=== PATIENT | male | born 1975 | race Caucasian/White ===

== ENCOUNTER 2018-09-09 16:49 | Emergency (ER) | payer OTHER ==
[2018-09-09 16:59] VITALS: BP 150/89; PULSE 88; RESP 16; TEMP 98.2
--- NOTE | 2018-09-09 17:25 | XR ---
PROCEDURE: XR foot complete RT - 3V DATE AND TIME: 09/09/2018 5:19 PM CLINICAL INDICATION: PHH; Pain TECHNIQUE: Department protocol COMPARISON: None FINDINGS: There is no fracture or malalignment. The soft tissues are unremarkable. IMPRESSION: NO ACUTE PROCESS.
[2018-09-09] MEDS ORDERED: LIDOCAINE 1% INJ 10MG/ML (20 ML MDV) SQ STA (17:28)
[2018-09-09] MEDS ORDERED: ACETAMINOPHEN TAB 325 MG TAB PO STA (17:28)
--- NOTE | 2018-09-09 18:34 | ED ---
General Adult HPI - General Chief complaint: Wound/Laceration Stated complaint: RT TOE INJURY Source: patient, RN notes reviewed, old records reviewed Mode of arrival: ambulatory Limitations: no limitations - History of Present Illness Initial comments: 42-year-old male patient with no pertinent past medical history presents to ED with acute injury to right great toe. Patient states that he was loading a small speaker out of a car when it fell onto his right great toe. Patient states that he experienced pain and some bleeding on his right great toe. Patient is ambulatory, has pain with his right foot while walking. Patient denies all other complaints. Patient denies use of blood thinners, familial cognition disorder. Patient denies chest pain, shortness of breath, abdominal pain, nausea vomiting diarrhea, any other symptoms. Systemic: Pt denies fatigue, myalgia, fever/chills, rash. Pt denies weakness, night sweats, weight loss. Neuro: Pt denies headache, visual disturbances, syncope or pre-syncope. HEENT: Pt denies ocular discharge or irritation, otalgia, rhinorrhea, pharyngitis or notable lymphadenopathy. Cardiopulmonary: Pt denies chest pain, SOB, heart palpitations, dyspnea on exertion. Abdominal/GI: Pt denies abdominal pain, n/v/d. : Pt denies dysuria, burning w/ urination, frequency/urgency. Denies new onset urinary or bowel incontinence. MSK: Pt denies myalgia, loss of strength or function in extremities. Neuro: Pt denies new onset weakness, paresthesias. - Related Data Allergies Allergy/AdvReac Type Severity Reaction Status Date / Time No Known Allergies Allergy Verified 09/09/18 16:59 Review of Systems ROS Statement: Those systems with pertinent positive or pertinent negative responses have been documented in the HPI. ROS Other: All systems not noted in ROS Statement are negative. Past Medical History Past Medical History: No Reported History History of Any Multi-Drug Resistant Organisms: None Reported Additional Past Surgical History / Comment(s): carpal tunnel. ACL left knee. Past Psychological History: No Psychological Hx Reported Smoking Status: Current every day smoker Past Alcohol Use History: Daily Past Drug Use History: None Reported General Exam - General Exam Comments Initial Comments: Constitutional: NAD, AOX3, Pt has pleasant affect. HEENT: NC/AT, trachea midline, neck supple, no lymphadenopathy. Posterior pharynx non erythematous, without exudates. External ears appear normal, without discharge. Mucous membranes moist. Eyes PERRLA, EOM intact. There is no scleral icterus. No pallor noted. Cardiopulmonary: RRR, no murmurs, rubs or gallops, no JVD noted. Lungs CTAB in anterior and posterior rojas. No peripheral edema. Abdominal exam: Abdomen soft and non-distended. Abdomen non-tender to palpation in all 4 quadrants. Bowel sounds active in LLQ. No hepatosplenomegaly. No ecchymosis Neuro: CN II-XII grossly intact. No nuchal rigidity. MSK: Distal lateral right great lateral toe mildly tender to palpation. Patient able to wiggle toes. Approximately 3 cm laceration on lateral for great toe. Spares the nailbed. Sensation intact. Capillary refill <2 seconds. No tenderness to mid/fore/hindfoot, no ankle tenderness. Pt neurovascularly intact after suture placement. No posterior calf tenderness bilaterally, homans sign negative bilaterally. Posterior tibialis, dorsalis pedis and radial pulse +2 bilaterally. Sensation intact in upper and lower extremities. Full active ROM in upper and lower extremities, 5/5 strength. Limitations: no limitations Course Vital Signs 09/09/18 16:56 Temperature 98.2 F Pulse Rate 88 Respiratory 16 Rate Blood Pressure 150/89 O2 Sat by Pulse 98 Oximetry Procedures - Laceration Laceration #1 Consent Obtained: verbal consent Time Out Performed: Yes Indication: laceration Site: other (great toe) Description: linear Depth: simple, single layer Anesthetic Used: lidocaine 1% Anesthesia Technique: local infiltration Pre-repair: wound explored, irrigated extensively Type of Sutures: nylon Size of Sutures: 5-0 Number of Sutures: 6 Technique: simple, interrupted Patient Tolerated Procedure: well, no complications Medical Decision Making - Medical Decision Making 42-year-old male patient presents to ED after sustaining acute injury to right great toe after speaker fell on foot. Patient able to wiggle toes, able to ambulate, neurovascularly intact. Plain films of right great toe are negative. Laceration was repaired with 6 simple interrupted sutures. Patient tolerated procedure well. Patient to return to ED in 10 days to have sutures removed. Patient to follow primary care physician in one to 2 days. Patient educated on signs and symptoms of infection. Patient to return to ED if new signs or symptoms develop including worsening pain, fever chills, nausea vomiting diarrhea, erythema, discharge, any other new symptoms. Patient discharged in postop walking boot. Case discussed with Dr. Esparza. Disposition Clinical Impression: Laceration, Contusion of great toe of right foot Disposition: HOME SELF-CARE Condition: Good Instructions: Care For Your Stitches (ED), Foot Contusion (ED) Additional Instructions: Patient to adhere to previously discussed treatment plan and will take medication(s) as directed. Patient to follow up with PCP in 1-2 days. Patient to return to ED if symptoms do not improve. Is patient prescribed a controlled substance at d/c from ED?: No Referrals: Manuel Gallagher MD [Primary Care Provider] - 1-2 days Time of Disposition: 18:33
== END 2018-09-09 18:42 | disposition home or self-care (01) ==
LOC: EC 16:49
DX: S91.111A Laceration without foreign body of right great toe without damage to nail, initial encounter (principal); F17.200 Nicotine dependence, unspecified, uncomplicated; W20.8XXA Other cause of strike by thrown, projected or falling object, initial encounter; Y93.89 Activity, other specified; Y92.89 Other specified places as the place of occurrence of the external cause
CPT/HCPCS: 73630; 99283; 12002; J2001; 12001

== ENCOUNTER 2020-05-31 05:50 | Emergency (ER) | payer OTHER ==
[2020-05-31] MEDS ORDERED: SODIUM CHLORIDE 0.9% 1,000 ML IV ONE (06:28)
[2020-05-31] MEDS ORDERED: MORPHINE SULFATE 4 MG/ML SYRINGE IVP STA (06:28)
[2020-05-31] MEDS ORDERED: SODIUM CHLORIDE 0.9% 1,000 ML IV SCH (06:30)
--- NOTE | 2020-05-31 06:42 | ED ---
Male Urogenital HPI - General Chief complaint: Urogenital Stated complaint: groin pain Time Seen by Provider: 05/31/20 06:11 Source: patient Mode of arrival: ambulatory Limitations: no limitations - History of Present Illness Initial comments: 44yo male presenting today for cc of of left inguinal pain. Patient states he has left inguinal pain extends into his testicle. Patient states that increases with coughing or lifting. Patient states that this has been ongoing since Saturday he states he does have known history of a hernia. Patient states he went to an outpatient clinic who states they're concerned of a hernia. Patient states his symptoms persist he states they come and go. He denies dysuria urgency frequency. He states he does have some discomfort at times radiating into the left testicle. Patient denies any testicular color changes or swelling. Patient denies any fevers he has no additional complaints upon arrival patient appears well nontoxic - Related Data Home Medications Medication Instructions Recorded Confirmed Dextroamphetamine/Amphetamine 30 mg PO DAILY PRN 05/31/20 05/31/20 [Adderall Xr] [place](Unknown Dose) 1 tab PO DAILY PRN 05/31/20 05/31/20 Omeprazole Magnesium [PriLOSEC OTC] 20 mg PO DAILY PRN 05/31/20 05/31/20 Allergies Allergy/AdvReac Type Severity Reaction Status Date / Time No Known Allergies Allergy Verified 05/31/20 08:05 Review of Systems ROS Statement: Those systems with pertinent positive or pertinent negative responses have been documented in the HPI. ROS Other: All systems not noted in ROS Statement are negative. Past Medical History Past Medical History: No Reported History History of Any Multi-Drug Resistant Organisms: None Reported Additional Past Surgical History / Comment(s): carpal tunnel. ACL left knee. Past Psychological History: Depression Smoking Status: Current every day smoker Past Alcohol Use History: Abuse, Daily Past Drug Use History: Marijuana General Exam - General Exam Comments Initial Comments: General: The patient is awake and alert, in no distress, and does not appear acutely ill. Eye: Pupils are equal, round and reactive to light, extra-ocular movements are intact. No nystagmus. There is normal conjunctiva bilaterally. No signs of icterus. Ears, nose, mouth and throat: There are moist mucous membranes and no oral lesions. Neck: The neck is supple, there is no tenderness or JVD. Cardiovascular: There is a regular rate and rhythm. No murmur, rub or gallop is appreciated. Respiratory: Lungs are clear to auscultation, respirations are non-labored, breath sounds are equal. No wheezes, stridor, rales, or rhonchi. Gastrointestinal: Soft, non-distended, non-tender abdomen without masses or organomegaly noted. There is no rebound or guarding present. :with turning cough I did feel a reducible inguinal hernia on the left side is difficult to decipher if this was direct or indirect, I felt it mostly touched the tip of my finger most indicative of direct. Patient has no severe pain with exam. Verticle lie of sctorum, cremesteric reflex intact with no redness of scrotum. Musculoskeletal: Normal ROM, no tenderness. Strength 5/5. Sensation intact. P ulses equal bilaterally 2+. Neurological: A&O x 3. CN II-XII intact grossly, There are no obvious motor or sensory deficits. Coordination appears grossly intact. Speech is normal. Skin: Skin is warm and dry and no rashes or lesions are noted. Psychiatric: Cooperative, appropriate mood & affect, normal judgment. Limitations: no limitations Course Vital Signs 05/31/20 05/31/20 06:04 10:03 Temperature 97.9 F 98 F Pulse Rate 81 79 Respiratory 16 18 Rate Blood Pressure 137/90 120/91 O2 Sat by Pulse 99 97 Oximetry Medical Decision Making - Medical Decision Making 18.[address] no hernia, personally reviewed with attending Dr. mills who is agreeable to radiology read. Lactic acid WNL. After one dose of IV medications pt symptoms resolved. Hernia palpated but was reducible on exam. Patient US of scrotum no torsion. Patient UA unremarkable. Discussed importance of return parameters for pain as there is risk with hernia for strangulation/incarceration. Patient is to f/u with general surgery. Patient verbalized understanding and is agreeable to care plan and discharge. - Lab Data Result diagrams: 05/31/20 06:46 05/31/20 06:46 Lab Results 05/31/20 05/31/20 05/31/20 Range/Units 06:46 06:46 06:46 WBC 18.4 H (3.8-10.6) k/uL RBC 4.80 (4.30-5.90) m/uL Hgb 14.6 (13.0-17.5) gm/dL Hct 44.4 (39.0-53.0) % MCV 92.4 (80.0-100.0) fL MCH 30.3 (25.0-35.0) pg MCHC 32.8 (31.0-37.0) g/dL RDW 13.5 (11.5-15.5) % Plt Count 453 H (150-450) k/uL Neutrophils % 77 % Lymphocytes % 16 % Monocytes % 5 % Eosinophils % 2 % Basophils % 1 % Neutrophils # 14.1 H (1.3-7.7) k/uL Lymphocytes # 2.9 (1.0-4.8) k/uL Monocytes # 0.8 (0-1.0) k/uL Eosinophils # 0.3 (0-0.7) k/uL Basophils # 0.1 (0-0.2) k/uL Sodium 141 (137-145) mmol/L Potassium 4.1 (3.5-5.1) mmol/L Chloride 104 (98-107) mmol/L Carbon Dioxide 27 (22-30) mmol/L Anion Gap 10 mmol/L BUN 6 L (9-20) mg/dL Creatinine 0.69 (0.66-1.25) mg/dL Est GFR (CKD-EPI)AfAm >90 (>60 ml/min/1.73 sqM) Est GFR (CKD-EPI)NonAf >90 (>60 ml/min/1.73 sqM) Glucose 108 H (74-99) mg/dL Plasma Lactic Acid [place] 1.2 (0.7-2.0) mmol/L Calcium 9.7 (8.4-10.2) mg/dL Total Bilirubin 0.5 (0.2-1.3) mg/dL AST 29 (17-59) U/L ALT 37 (4-49) U/L Alkaline Phosphatase 89 (38-126) U/L Total Protein 7.8 (6.3-8.2) g/dL Albumin 4.8 (3.5-5.0) g/dL Urine Color Urine Appearance (Clear) Urine pH (5.0-8.0) Ur Specific [place] (1.001-1.035) Urine Protein (Negative) Urine Glucose (UA) (Negative) Urine Ketones (Negative) Urine Blood (Negative) Urine Nitrite (Negative) Urine Bilirubin (Negative) Urine Urobilinogen (<2.0) mg/dL Ur Leukocyte Esterase (Negative) 05/31/20 Range/Units 06:46 WBC (3.8-10.6) k/uL RBC (4.30-5.90) m/uL Hgb (13.0-17.5) gm/dL Hct (39.0-53.0) % MCV (80.0-100.0) fL MCH (25.0-35.0) pg MCHC (31.0-37.0) g/dL RDW (11.5-15.5) % Plt Count (150-450) k/uL Neutrophils % % Lymphocytes % % Monocytes % % Eosinophils % % Basophils % % Neutrophils # (1.3-7.7) k/uL Lymphocytes # (1.0-4.8) k/uL Monocytes # (0-1.0) k/uL Eosinophils # (0-0.7) k/uL Basophils # (0-0.2) k/uL Sodium (137-145) mmol/L Potassium (3.5-5.1) mmol/L Chloride (98-107) mmol/L Carbon Dioxide (22-30) mmol/L Anion Gap mmol/L BUN (9-20) mg/dL Creatinine (0.66-1.25) mg/dL Est GFR (CKD-EPI)AfAm (>60 ml/min/1.73 sqM) Est GFR (CKD-EPI)NonAf (>60 ml/min/1.73 sqM) Glucose (74-99) mg/dL Plasma Lactic Acid [place] (0.7-2.0) mmol/L Calcium (8.4-10.2) mg/dL Total Bilirubin (0.2-1.3) mg/dL AST (17-59) U/L ALT (4-49) U/L Alkaline Phosphatase (38-126) U/L Total Protein (6.3-8.2) g/dL Albumin (3.5-5.0) g/dL Urine Color Colorless Urine Appearance Clear (Clear) Urine pH 6.5 (5.0-8.0) Ur Specific [place] 1.011 (1.001-1.035) Urine Protein Negative (Negative) Urine Glucose (UA) Negative (Negative) Urine Ketones Negative (Negative) Urine Blood Negative (Negative) Urine Nitrite Negative (Negative) Urine Bilirubin Negative (Negative) Urine Urobilinogen <2.0 (<2.0) mg/dL Ur Leukocyte Esterase Negative (Negative) Disposition Clinical Impression: Inguinal hernia, Leucocytosis Disposition: HOME SELF-CARE Condition: Good Additional Instructions: Please use medication as discussed. Please follow-up with family doctor in the next 2 days, recommend follow-up with surgery in next week--return for worsening pain. Please return to emergency room if the symptoms increase or worsen or for any other concerns. Is patient prescribed a controlled substance at d/c from ED?: No Referrals: None,Stated [Primary Care Provider] - 1-2 days Benjamin Small MD [STAFF PHYSICIAN] - 1-2 days Time of Disposition: 09:25
[2020-05-31 06:54] LABS: Basophils # (A) 0.1 k/uL (0-0.2); Basophils % (A) 1 %; Eosinophils # (A) 0.3 k/uL (0-0.7); Eosinophils % (A) 2 %; HCT 44.4 % (39.0-53.0); HGB 14.6 gm/dL (13.0-17.5); Lymphocytes # (A) 2.9 k/uL (1.0-4.8); Lymphocytes % (A) 16 %; MCH 30.3 pg (25.0-35.0); MCHC 32.8 g/dL (31.0-37.0); MCV 92.4 fL (80.0-100.0); Mean Platelet Volume 7.5; Monocytes # (A) 0.8 k/uL (0-1.0); Monocytes % (A) 5 %; Neutrophils # (A) 14.1 k/uL (1.3-7.7); Neutrophils % (A) 77 %; Platelet Count 453 k/uL (150-450); RDW 13.5 % (11.5-15.5); WBC 18.4 k/uL (3.8-10.6)
[2020-05-31 07:02] LABS: ALT 37 U/L (4-49); AST 29 U/L (17-59); African American GFR (CKD) >90 (>60 ml/min/1.73 sqM); Albumin 4.8 g/dL (3.5-5.0); Alkaline Phosphatase 89 U/L (38-126); Anion Gap 10 mmol/L; Blood Urea Nitrogen 6 mg/dL (9-20); Calcium 9.7 mg/dL (8.4-10.2); Carbon Dioxide 27 mmol/L (22-30); Chloride 104 mmol/L (98-107); Glucose 108 mg/dL (74-99); Non-African American GFR(CKD) >90 (>60 ml/min/1.73 sqM); Potassium 4.1 mmol/L (3.5-5.1); Sodium 141 mmol/L (137-145); Total Bilirubin 0.5 mg/dL (0.2-1.3); Total Protein 7.8 g/dL (6.3-8.2)
[2020-05-31 07:37] LABS: Appearance,Urine Clear (Clear); Bilirubin,Urine Negative (Negative); Blood,Urine Negative (Negative); Color,Urine Colorless; Glucose,Urine (UA) Negative (Negative); Ketones,Urine Negative (Negative); Leukocyte Esterase,Urine Negative (Negative); Nitrite,Urine Negative (Negative); PH, Urine 6.5 (5.0-8.0); Protein,Urine Negative (Negative); Specific Gravity,Urine 1.011 (1.001-1.035); Urobilinogen,Urine <2.0 mg/dL (<2.0)
--- NOTE | 2020-05-31 08:08 | CT ---
EXAMINATION TYPE: CT abdomen pelvis w con DATE OF EXAM: 05/31/2020 COMPARISON: None. HISTORY: Left inguinal pain, palpable hernia CT DLP: 1144.1 mGycm, Automated Exposure Control for Dose Reduction was Utilized. CONTRAST: CT scan of the abdomen and pelvis is performed without oral but with IV Contrast, patient injected wi th 100 ml mL of Isovue 300. FINDINGS: LUNG BASES: Dependent atelectasis in the bases. [id number] linear scarring and/or atelectasis a nteriorly near diaphragm. LIVER/GB: No significant abnormality is appreciated. PANCREAS: No significant abnormality is seen. SPLEEN: No significant abnormality is seen. ADRENALS: No significant abnormality is seen. KIDNEYS: No significant abnormality is seen. BOWEL: Stomach poorly distended and thus suboptimally evaluated. No suspicious small or large bowel d ilatation. Normal-appearing appendix in the right lower quadrant. Some diverticula in the sigmoid col on. No CT evidence for acute diverticulitis. PROSTATE/SEMINAL VESICLES: No gross abnormality seen. LYMPH NODES: No greater than 1cm abdominal or pelvic lymph nodes are appreciated. No suspicious left groin adenopathy. OSSEOUS STRUCTURES: Mild to moderate disc space narrowing and spurring L1-L2 level. Mild multilevel s purring in the visualized thoracic spine. Facet arthropathy lower lumbar levels. Mild/moderate superi or joint space loss and mild acetabular spurring both hips. OTHER: No suspicious bowel or fat containing left inguinal hernia IMPRESSION: No significant finding is seen to account for patient's clinical symptoms. No suspicious left inguinal mass, adenopathy, or hernia defect.
--- NOTE | 2020-05-31 09:13 | US ---
EXAMINATION TYPE: US scrotum with doppler. Grayscale and color Doppler Duplex imaging performed of t he scrotum. DATE OF EXAM: 05/31/2020 COMPARISON: NONE CLINICAL HISTORY: left testicular/groin pain. pain left testicle EXAM MEASUREMENTS: TESTICLES: Right Testicle: 4.4 x 2.2 x 3.2 cm Left Testicle: 4.4 x 2.2 x 3.2 cm EPIDIDYMIS HEAD: Right Epididymis: .8 x 1.0 x 1.2 cm Left Epididymis: Not well visualized Doppler performed to assess for testicular vascularity; good bilateral color flow and waveforms are s een. Presence of hydroceles: Yes left Presence of varicoceles: No Both testicles identified without suspicious intratesticular mass. Satisfactory blood flow to both te sticles. Small left scrotal fluid collection or hydrocele inferiorly. Last image shows symmetric bloo d flow. IMPRESSION: Symmetric blood flow to both testicles documented at
[2020-05-31] MEDS ORDERED: ACET/COD 300 MG/30 MG STARTER PACK 6 TAB BTL PO STA (09:24)
[2020-05-31 10:07] VITALS: BP 120/91; PULSE 79; RESP 18; TEMP 98
== END 2020-05-31 10:06 | disposition home or self-care (01) ==
LOC: EC 05:50
DX: K40.90 Unilateral inguinal hernia, without obstruction or gangrene, not specified as recurrent (principal); D72.829 Elevated white blood cell count, unspecified; F17.200 Nicotine dependence, unspecified, uncomplicated
CPT/HCPCS: 36415; 80053; 83605; 85025; 81003; 93975; 76870; 74177; 99284; 96374; 96361 ×3; J2270; Q9967

== ENCOUNTER → 2020-06-27 | Outpatient (CLI) | payer OTHER ==
[2020-06-27 11:43] LABS: HGB 15.4 gm/dL (13.0-17.5); MCH 30.4 pg (25.0-35.0); MCHC 32.7 g/dL (31.0-37.0); MCV 92.8 fL (80.0-100.0); Mean Platelet Volume 7.7; Platelet Count 427 k/uL (150-450); RBC 5.06 m/uL (4.30-5.90); RDW 13.5 % (11.5-15.5); WBC 13.1 k/uL (3.8-10.6)
== END | disposition home or self-care (01) ==
LOC: LABWHC1 09:57
PROVIDERS: ATTEND Surgery
DX: Z01.818 Encounter for other preprocedural examination (principal)
CPT/HCPCS: 36415; 85027

== ENCOUNTER 2020-07-06 07:31 | Day surgery (SDC) | payer OTHER ==
[2020-07-04 14:00] VITALS: BMI 28.0
[~2020-07-06 07:31] MED LIST: DEXAMETHASONE SOD PHOSPHATE 10 MG/ML 1 ML VIAL IV ONE; LACTATED RINGERS 1,000 ML IV SCH; LIDOCAINE 1% (10MG/ML) FOR IV START INTRADERMA PRN; ONDANSETRON 4 MG/2 ML VIAL IVP ONE
[2020-07-06] MEDS ORDERED: HEPARIN SODIUM,PORCINE 5,000 UNIT/ML 1 ML VIAL ONE (08:10)
[2020-07-06] MEDS ORDERED: MIDAZOLAM 2 MG/2 ML VIAL IV ONE (08:36)
--- NOTE | 2020-07-06 09:01 | P.GSHP ---
History of Present Illness H&P Date: 07/06/20 Chief Complaint: Left inguinal hernia This a 44-year-old male who presents today for laparoscopic robotic Left internal hernia. Patient complains of a tender mass is left groin which is intermittent nature. Past Medical History Past Medical History: COPD, GERD/Reflux, Osteoarthritis (OA) History of Any Multi-Drug Resistant Organisms: None Reported Past Surgical History: Orthopedic Surgery Additional Past Surgical History / Comment(s): BILATERAL carpal tunnel,. ACL left knee. Past Anesthesia/Blood Transfusion Reactions: No Reported Reaction Smoking Status: Current every day smoker - Past Family History Mother Family Medical History: No Reported History Medications and Allergies Home Medications Medication Instructions Recorded Confirmed Type Omeprazole Magnesium [PriLOSEC OTC] 20 mg PO DAILY PRN 05/31/20 07/06/20 History Allergies Allergy/AdvReac Type Severity Reaction Status Date / Time No Known Allergies Allergy Verified 07/06/20 08:02 Surgical - Exam Vital Signs Temp Pulse Resp BP Pulse Ox 97.5 F L 76 16 114/68 94 L 07/06/20 08:00 07/06/20 08:00 07/06/20 08:00 07/06/20 08:00 07/06/20 08:00 - General well developed, well nourished, no distress - Eyes PERRL - ENT normal pinna - Neck no masses - Respiratory normal expansion - Cardiovascular Rhythm: regular - Abdomen Abdomen: soft, non tender Hernia: inguinal (Left) Assessment and Plan Assessment: Left inguinal hernia. We'll perform laparoscopic robotic-assisted repair.
[2020-07-06] MEDS ORDERED: PROPOFOL 10 MG/ML 20 ML VIAL IV ONE (09:13)
[2020-07-06] MEDS ORDERED: ROCURONIUM 10 MG/ML (5 ML VIAL) IV ONE (09:13)
[2020-07-06] MEDS ORDERED: SUCCINYLCHOLINE CHLORIDE 100 MG/5 ML SYR IV ONE (09:13)
[2020-07-06] MEDS ORDERED: MIDAZOLAM 2 MG/2 ML VIAL ONE (09:13)
[2020-07-06] MEDS ORDERED: fentaNYL (PF) 50 MCG/ML 2 ML AMP ONE (09:13)
[2020-07-06] MEDS ORDERED: GLYCOPYRROLATE 0.2 MG/ML 2 ML VIAL ONE (09:13)
[2020-07-06] MEDS ORDERED: LIDOCAINE 1% INJ 10MG/ML (20 ML MDV) ONE (09:13)
[2020-07-06] MEDS ORDERED: NEOSTIGMINE 1 MG/ML 10 ML VIAL ONE (09:13)
[2020-07-06] MEDS ORDERED: ceFAZolin 1,000 MG VIAL IVPB ONE (09:22)
[2020-07-06] MEDS ORDERED: BUPIVACAINE (PF) 0.25% 30 ML VIAL SQ ONE (09:33)
--- NOTE | 2020-07-06 10:05 | P.OP ---
Date of Procedure: 07/06/20 Preoperative Diagnosis: Left inguinal hernia Postoperative Diagnosis: Left inguinal hernia Procedure(s) Performed: Laparoscopic robotic system repair of left inguinal hernia Left cord lipoma excision Anesthesia: BUD Surgeon: Benjamin Small Estimated Blood Loss (ml): 5 Pathology: other (Cord lipoma) Condition: stable Disposition: PACU Description of Procedure: The patient's placed on the operating table in the supine position. The patient received general anesthesia. The patient's abdomen was prepped and draped in usual sterile fashion. The skin was anesthetized 1% local Xylocaine at the incision sites. Using an 11 blade a skin incision was made at the umbilicus. The fascia was grasped with a Umu and then the peritoneal cavity was entered with the Veress needle. Position of the Veress needle was confirmed with a positive drop test. After adequate insufflation a 5 mm trocar was placed into the peritoneal cavity. The Laparoscope was placed the peritoneal cavity. And a robotic 8 mm trocar was placed in the right lateral position and then another 8 mm robotic trochars placed in the left lateral position. The original 5 mm trocar was exchanged for a 12 mm trocar. The patient was placed in reverse Trendelenburg and then the patient was docked to the robot. Next the peritoneum over top of the hernia was incised and then using blunt and sharp dissection and electrocautery the hernia sac was dissected free from the floor of the inguinal canal. The cord lipoma was dissected free and sent to pathology. The hernia sac was completely reduced into the peritoneal cavity. And then using the Pro felt hat inspector and packer mesh the hernia was repaired. The peritoneum was then sutured with 20V lock suture. The patient was then undocked the robot. The needle was withdrawn from the peritoneal cavity. The umbilical trocar site was closed with 0 Ethibond suture. The skin was closed interrupted 3-0 Monocryl suture. Dermabond dressing was applied. Patient was sent to recovery in stable condition.
[2020-07-06 10:16] VITALS: TEMP 97.3
[2020-07-06] MEDS: HYDROmorphone 0.5 MG/0.5 ML SYRINGE IVP PRN ×2 (10:22→10:37)
[2020-07-06 10:45] VITALS: RESP 16
[2020-07-06] MEDS ORDERED: LACTATED RINGERS 1,000 ML IV ONE (11:11)
[2020-07-06 11:43] VITALS: BP 116/71; PULSE 68
--- NOTE | 2020-07-07 13:12 | P.ANPRN ---
Procedure Note - Anesthesia - Nerve Block Performed Left Transversus Abdominis Single Time Out Performed: Yes Date of Procedure: 07/06/20 Procedure Start Time: 08:35 Procedure Stop Time: 08:40 Location of Patient: PreOp Indication: Acute Post-Operative Pain, Requested by Surgeon Sedation Type: Sedate with meaningful contact maintained Preparation: Sterile Prep Position: Supine Needle Types: Pajunk Needle Gauge: 21 Ultrasound used to visualize needle placement: Yes Ultrasound used to observe medication spread: Yes Blood Aspirated: No Pain Paresthesia on Injection Noted: No Resistance on Injection: Normal Image Stored and Saved: Yes Events: Uneventful and Well Tolerated (ropi .5% 20cc plus dexamethasone 4 mg)
== END 2020-07-06 12:08 ==
LOC: OR 07:31
PROVIDERS: ATTEND Surgery
DX: K40.90 Unilateral inguinal hernia, without obstruction or gangrene, not specified as recurrent (principal); D17.6 Benign lipomatous neoplasm of spermatic cord; J44.9 Chronic obstructive pulmonary disease, unspecified; M19.90 Unspecified osteoarthritis, unspecified site; K21.9 Gastro-esophageal reflux disease without esophagitis; F17.210 Nicotine dependence, cigarettes, uncomplicated; Z79.899 Other long term (current) drug therapy; Z98.890 Other specified postprocedural states
CPT/HCPCS: 49650; 64486; 88304; C1781; J2250; J1644; J1100; J2710; J0690; J2405; J2001; J3010; J0330; J2704; J1170; 76942

== ENCOUNTER 2020-10-04 12:27 | Emergency (ER) | payer OTHER ==
[2020-10-04 12:36] VITALS: RESP 18; TEMP 98.1
[2020-10-04] MEDS ORDERED: KETOROLAC 15 MG/ML 1 ML VIAL IVP STA (13:02)
--- NOTE | 2020-10-04 13:04 | ED ---
General Adult HPI - General Chief complaint: Abdominal Pain Stated complaint: kidney issues Time Seen by Provider: 10/04/20 12:46 Source: patient, RN notes reviewed Mode of arrival: ambulatory Limitations: no limitations - History of Present Illness Initial comments: 44-year-old male with a past medical history of COPD, GERD presents to the emergency room for left flank pain. Patient reports he has had left flank pain since yesterday. States this feels like a kidney infection or kidney stone. Patient reports he has had these both in the past. He denies any abdominal pain. Denies nausea or vomiting. Denies fevers or chills. Patient states he has been told he gets these urinary tract infections because he doesn't drink enough water. Patient is not immunocompromised as far as he is aware.Patient has no other complaints at this time including shortness of breath, chest pain, abdominal pain, nausea or vomiting, headache, or visual changes. - Related Data Home Medications Medication Instructions Recorded Confirmed Omeprazole Magnesium [PriLOSEC OTC] 20 mg PO DAILY 05/31/20 10/04/20 Multivitamins, Thera [Multivitamin 1 tab PO DAILY 10/04/20 10/04/20 (formulary)] Vitamin B Complex 1 cap PO DAILY 10/04/20 10/04/20 Allergies Allergy/AdvReac Type Severity Reaction Status Date / Time No Known Allergies Allergy Verified 10/04/20 13:34 Review of Systems ROS Statement: Those systems with pertinent positive or pertinent negative responses have been documented in the HPI. ROS Other: All systems not noted in ROS Statement are negative. Past Medical History Past Medical History: COPD, GERD/Reflux, Osteoarthritis (OA) History of Any Multi-Drug Resistant Organisms: None Reported Past Surgical History: Orthopedic Surgery Additional Past Surgical History / Comment(s): BILATERAL carpal tunnel,. ACL left knee. Past Anesthesia/Blood Transfusion Reactions: No Reported Reaction Past Psychological History: ADD/ADHD, Depression Smoking Status: Current every day smoker - Past Family History Mother Family Medical History: No Reported History General Exam Limitations: no limitations General appearance: alert Head exam: Present: atraumatic, normocephalic, normal inspection Eye exam: Present: normal appearance, PERRL, EOMI. Absent: scleral icterus, conjunctival injection, periorbital swelling ENT exam: Present: normal exam Neck exam: Present: normal inspection, full ROM. Absent: tenderness, meningismus, lymphadenopathy Respiratory exam: Present: normal lung sounds bilaterally. Absent: respiratory distress, wheezes, rales, rhonchi, stridor Cardiovascular Exam: Present: regular rate, normal rhythm, normal heart sounds. Absent: systolic murmur, diastolic murmur, rubs, gallop, clicks GI/Abdominal exam: Present: soft, normal bowel sounds. Absent: distended, tenderness, guarding, rebound, rigid Back exam: Absent: CVA tenderness (R), CVA tenderness (L) Course Vital Signs 10/04/20 12:32 Temperature 98.1 F Pulse Rate 80 Respiratory 18 Rate Blood Pressure 134/88 O2 Sat by Pulse 100 Oximetry Medical Decision Making - Medical Decision Making Other stable. Patient does not have any left CVA tenderness. CBC does show leukocytosis of uncertain significance. CMP is unremarkable. Urinalysis is negative. CT abdomen and pelvis shows a possible punctate 1 mm distal right ureteral calculus. No left sided kidney stone to cause less sided flank pain. Patient's pain is very mild in nature. At this time he may have a muscle strain. Rectal any follow-up with his doctor and return here for any worsening symptoms. There was also an incidental finding of a 3.4 cm linear metal object in the right upper quadrant. This is new compared to 05/31/2020. Patient did have surgery in June for an inguinal hernia. At this time recommending he follow-up with his surgeon for this or return if he develops any abdominal pain. He will also be given follow-up to primary care for flank pain. - Lab Data Result diagrams: 10/04/20 13:21 10/04/20 13:21 Lab Results 10/04/20 10/04/20 10/04/20 Range/Units 13:21 13:21 13:21 WBC 15.9 H (3.8-10.6) k/uL RBC 4.96 (4.30-5.90) m/uL Hgb 15.8 (13.0-17.5) gm/dL Hct 45.8 (39.0-53.0) % MCV 92.4 (80.0-100.0) fL MCH 31.9 (25.0-35.0) pg MCHC 34.6 (31.0-37.0) g/dL RDW 13.1 (11.5-15.5) % Plt Count 405 (150-450) k/uL MPV 7.3 Neutrophils % 70 % Lymphocytes % 20 % Monocytes % 5 % Eosinophils % 3 % Basophils % 1 % Neutrophils # 11.1 H (1.3-7.7) k/uL Lymphocytes # 3.2 (1.0-4.8) k/uL Monocytes # 0.8 (0-1.0) k/uL Eosinophils # 0.5 (0-0.7) k/uL Basophils # 0.1 (0-0.2) k/uL Sodium 141 (137-145) mmol/L Potassium 4.3 (3.5-5.1) mmol/L Chloride 109 H (98-107) mmol/L Carbon Dioxide 26 (22-30) mmol/L Anion Gap 6 mmol/L BUN 8 L (9-20) mg/dL Creatinine 0.77 (0.66-1.25) mg/dL Est GFR (CKD-EPI)AfAm >90 (>60 ml/min/1.73 sqM) Est GFR (CKD-EPI)NonAf >90 (>60 ml/min/1.73 sqM) Glucose 67 L (74-99) mg/dL Plasma Lactic Acid Monroe (0.7-2.0) mmol/L Calcium 9.6 (8.4-10.2) mg/dL Total Bilirubin 0.3 (0.2-1.3) mg/dL AST 25 (17-59) U/L ALT 29 (4-49) U/L Alkaline Phosphatase 90 (38-126) U/L Total Protein 7.5 (6.3-8.2) g/dL Albumin 4.5 (3.5-5.0) g/dL Amylase 60 (30-110) U/L Lipase 105 (23-300) U/L Urine Color Light Yellow Urine Appearance Clear (Clear) Urine pH 5.5 (5.0-8.0) Ur Specific [place] 1.006 (1.001-1.035) Urine Protein Negative (Negative) Urine Glucose (UA) Negative (Negative) Urine Ketones Negative (Negative) Urine Blood Negative (Negative) Urine Nitrite Negative (Negative) Urine Bilirubin Negative (Negative) Urine Urobilinogen <2.0 (<2.0) mg/dL Ur Leukocyte Esterase Negative (Negative) 10/04/20 Range/Units 13:21 WBC (3.8-10.6) k/uL RBC (4.30-5.90) m/uL Hgb (13.0-17.5) gm/dL Hct (39.0-53.0) % MCV (80.0-100.0) fL MCH (25.0-35.0) pg MCHC (31.0-37.0) g/dL RDW (11.5-15.5) % Plt Count (150-450) k/uL MPV Neutrophils % % Lymphocytes % % Monocytes % % Eosinophils % % Basophils % % Neutrophils # (1.3-7.7) k/uL Lymphocytes # (1.0-4.8) k/uL Monocytes # (0-1.0) k/uL Eosinophils # (0-0.7) k/uL Basophils # (0-0.2) k/uL Sodium (137-145) mmol/L Potassium (3.5-5.1) mmol/L Chloride (98-107) mmol/L Carbon Dioxide (22-30) mmol/L Anion Gap mmol/L BUN (9-20) mg/dL Creatinine (0.66-1.25) mg/dL Est GFR (CKD-EPI)AfAm (>60 ml/min/1.73 sqM) Est GFR (CKD-EPI)NonAf (>60 ml/min/1.73 sqM) Glucose (74-99) mg/dL Plasma Lactic Acid [place] 1.2 (0.7-2.0) mmol/L Calcium (8.4-10.2) mg/dL Total Bilirubin (0.2-1.3) mg/dL AST (17-59) U/L ALT (4-49) U/L Alkaline Phosphatase (38-126) U/L Total Protein (6.3-8.2) g/dL Albumin (3.5-5.0) g/dL Amylase (30-110) U/L Lipase (23-300) U/L Urine Color Urine Appearance (Clear) Urine pH (5.0-8.0) Ur Specific [place] (1.001-1.035) Urine Protein (Negative) Urine Glucose (UA) (Negative) Urine Ketones (Negative) Urine Blood (Negative) Urine Nitrite (Negative) Urine Bilirubin (Negative) Urine Urobilinogen (<2.0) mg/dL Ur Leukocyte Esterase (Negative) Disposition Clinical Impression: Flank pain Disposition: HOME SELF-CARE Condition: Good Additional Instructions: Please follow-up with primary care doctor for flank pain. If you have worsening symptoms return to the emergency room. Follow-up with your surgeon for possible metal foreign body in your abdomen. This is new since at least May. Return to the emergency room for any worsening symptoms. Is patient prescribed a controlled substance at d/c from ED?: No Referrals: Duncan Mendez [STAFF PHYSICIAN] - 1-2 days Benjamin Small MD [STAFF PHYSICIAN] - 1-2 days Time of Disposition: 14:58
[2020-10-04 13:37] LABS: Basophils # (A) 0.1 k/uL (0-0.2); Basophils % (A) 1 %; Eosinophils # (A) 0.5 k/uL (0-0.7); Eosinophils % (A) 3 %; HCT 45.8 % (39.0-53.0); HGB 15.8 gm/dL (13.0-17.5); Lymphocytes # (A) 3.2 k/uL (1.0-4.8); Lymphocytes % (A) 20 %; MCH 31.9 pg (25.0-35.0); MCHC 34.6 g/dL (31.0-37.0); MCV 92.4 fL (80.0-100.0); Mean Platelet Volume 7.3; Monocytes # (A) 0.8 k/uL (0-1.0); Monocytes % (A) 5 %; Neutrophils # (A) 11.1 k/uL (1.3-7.7); Neutrophils % (A) 70 %; Platelet Count 405 k/uL (150-450); RBC 4.96 m/uL (4.30-5.90); RDW 13.1 % (11.5-15.5); WBC 15.9 k/uL (3.8-10.6)
[2020-10-04 13:47] LABS: ALT 29 U/L (4-49); AST 25 U/L (17-59); African American GFR (CKD) >90 (>60 ml/min/1.73 sqM); Albumin 4.5 g/dL (3.5-5.0); Alkaline Phosphatase 90 U/L (38-126); Amylase 60 U/L (30-110); Anion Gap 6 mmol/L; Appearance,Urine Clear (Clear); Bilirubin,Urine Negative (Negative); Blood Urea Nitrogen 8 mg/dL (9-20); Blood,Urine Negative (Negative); Calcium 9.6 mg/dL (8.4-10.2); Carbon Dioxide 26 mmol/L (22-30); Chloride 109 mmol/L (98-107); Color,Urine Light Yellow; Glucose 67 mg/dL (74-99); Glucose,Urine (UA) Negative (Negative); Ketones,Urine Negative (Negative); Leukocyte Esterase,Urine Negative (Negative); Lipase 105 U/L (23-300); Nitrite,Urine Negative (Negative); Non-African American GFR(CKD) >90 (>60 ml/min/1.73 sqM); PH, Urine 5.5 (5.0-8.0); Potassium 4.3 mmol/L (3.5-5.1); Protein,Urine Negative (Negative); Sodium 141 mmol/L (137-145); Specific Gravity,Urine 1.006 (1.001-1.035); Total Bilirubin 0.3 mg/dL (0.2-1.3); Total Protein 7.5 g/dL (6.3-8.2); Urobilinogen,Urine <2.0 mg/dL (<2.0)
--- NOTE | 2020-10-04 14:32 | CT ---
EXAMINATION TYPE: CT abdomen pelvis wo con DATE OF EXAM: 10/04/2020 COMPARISON: 05/31/2020 HISTORY: 44-year-old male with right flank pain, question nephrolithiasis, Left sided pain with urina tion changes. CT DLP: 557.8 mGycm. Automated exposure control for dose reduction was used. TECHNIQUE: Contiguous axial scanning of the abdomen and pelvis without IV contrast. Coronal and sagit enrique reconstructions performed. FINDINGS: Heart normal size without pericardial effusion. Mild diffuse bronchial wall thickening. 4 mm peripheral left basilar pulmonary nodule, unchanged from 05/31/2020 suggesting a benign etiology. No pleural effusion. Liver enlarged at 19.4 cm. There is a linear 3.4 cm metallic density along the anterior right upper q uadrant adjacent to the gallbladder fossa and hepatic flexure of the colon, new from 05/31/2020. Noncontrast appearance of the gallbladder, adrenal glands, spleen, pancreas show no gross abnormal jose a dy. Scattered punctate 1 to 2 mm calculi in both kidneys, left greater than right. Possible punctate 1 mm calculus distal right ureter, axial image 119. Scattered prominent retroperitoneal lymph nodes measuring up to 1.1 cm left periaortic region, unchan ged suggesting a benign etiology. No dilated small bowel, free fluid, or free air. Normal appendix. Mild stool burden. No pericolonic inflammatory change. Suspect prior mesh repair along the left inguinal region. There is moderate circumferential bladder wall thickening. No abnormal fluid collection in the pelvis or pelvic lymphadenopathy. Bones: Mild degenerative change of the hips. Facet arthropathy mid to lower lumbar spine. IMPRESSION: 1. Possible punctate 1 mm distal right ureteral calculus. No obstructive uropathy seen. 2. Additional scattered punctate 1 to 2 mm nonobstructive calculi in both kidneys. 3. Moderate circumferential bladder wall thickening is new. Correlate to exclude cystitis. 4. A 3.4 cm linear metal object along the anterior right upper quadrant adjacent to the gallbladder fossa and hepatic flexure of the colon. This is new from 05/31/2020. Correlate as to etiology. 5. Hepatomegaly (19.4 cm).
[2020-10-04 15:09] VITALS: BP 132/86; PULSE 76
== END 2020-10-04 15:09 | disposition home or self-care (01) ==
LOC: EC 12:27
DX: R10.9 Unspecified abdominal pain (principal); K21.9 Gastro-esophageal reflux disease without esophagitis; F17.200 Nicotine dependence, unspecified, uncomplicated; Z79.899 Other long term (current) drug therapy
CPT/HCPCS: 36415; 80053; 82150; 83605; 83690; 85025; 81003; 74176; 99284; 96374; J1885

== ENCOUNTER 2021-05-31 17:40 | Observation (INO) | payer OTHER ==
[2021-05-31 17:43] VITALS: BP 118/79; PULSE 81; RESP 18; TEMP 97.8
--- NOTE | 2021-05-31 18:15 | ED ---
General Adult HPI - General Chief complaint: Skin/Abscess/Foreign Body Stated complaint: finger injury Time Seen by Provider: 05/31/21 18:03 Source: patient, RN notes reviewed, old records reviewed Mode of arrival: ambulatory Limitations: no limitations - History of Present Illness Initial comments: 45-year-old well-appearing white male presents to the emergency room with complaints of left index finger swelling. 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 He states that he is having difficulty bending the finger. He denies any fevers or nausea or vomiting. He states his tetanus shot is up-to-date. He is a smoker but denies any other drug use. He has limited mobility due to swelling and pain. -: days(s) (7) Location: left (Index finger) Severity scale (1-10): 4 Quality: sharp, constant Consistency: constant Improves with: immobilization Worsens with: movement Associated Symptoms: denies other symptoms Treatments Prior to Arrival: none - Related Data Home Medications Medication Instructions Recorded Confirmed Omeprazole Magnesium [PriLOSEC OTC] 20 mg PO DAILY 05/31/20 05/31/21 Multivitamins, Thera [Multivitamin 1 tab PO DAILY 10/04/20 05/31/21 (formulary)] Allergies Allergy/AdvReac Type Severity Reaction Status Date / Time No Known Allergies Allergy Verified 05/31/21 22:06 Review of Systems ROS Statement: Those systems with pertinent positive or pertinent negative responses have been documented in the HPI. ROS Other: All systems not noted in ROS Statement are negative. Past Medical History Past Medical History: COPD, GERD/Reflux, Osteoarthritis (OA) History of Any Multi-Drug Resistant Organisms: None Reported Past Surgical History: Orthopedic Surgery Additional Past Surgical History / Comment(s): BILATERAL carpal tunnel,. ACL left knee. Past Anesthesia/Blood Transfusion Reactions: No Reported Reaction Past Psychological History: ADD/ADHD, Depression Smoking Status: Current every day smoker Past Alcohol Use History: None Reported Past Drug Use History: Marijuana - Past Family History Mother Family Medical History: No Reported History General Exam Limitations: no limitations General appearance: alert, in no apparent distress Head exam: Present: atraumatic, normocephalic, normal inspection Eye exam: Present: normal appearance, PERRL, EOMI. Absent: scleral icterus, conjunctival injection, periorbital swelling ENT exam: Present: normal exam, normal oropharynx, mucous membranes moist Neck exam: Present: normal inspection, full ROM. Absent: tenderness, meningismus, lymphadenopathy Respiratory exam: Present: normal lung sounds bilaterally, wheezes. Absent: respiratory distress, rales, rhonchi, stridor Cardiovascular Exam: Present: regular rate, normal rhythm, normal heart sounds. Absent: systolic murmur, diastolic murmur, rubs, gallop, clicks Left Hand Wrist exam: Present: tenderness, swelling, abrasion (Lateral aspect of the index finger proximal to the DIP joint), erythema. Absent: full ROM, laceration, ecchymosis, deformity, crepitus, dislocation, subungual hematoma Vascular: Present: normal capillary refill. Absent: vascular compromise Neurological exam: Present: alert, oriented X3, CN II-XII intact Psychiatric exam: Present: normal affect, normal mood Skin exam: Present: warm, dry, intact, normal color. Absent: rash Course Vital Signs 05/31/21 17:41 Temperature 97.8 F Pulse Rate 81 Respiratory 18 Rate Blood Pressure 118/79 O2 Sat by Pulse 100 Oximetry Medical Decision Making - Medical Decision Making Dr Driscoll at bedside at 1820 to evaluate patient for flexor tenosynovitis. This appears to be a local cellulitis. Labs are drawn so a WBC count 14,000. Blood cultures were drawn and patient was started on antibiotics. I did speak with Dr. Lin who agreed to admit patient with IV antibiotics nothing by mouth after midnight. Patient stated that he could not be admitted at this time and would come back later this evening. He states that he has family members that he needed to take care of and is not prepared to stay. I explained to patient the risk of leaving AGAINST MEDICAL ADVICE with the concern for the infection is great enough that he should be staying in the hospital for reevaluation by orthopedics and possible surgical intervention. He states that he will come back to the emergency room this evening. Family members 2 at the bedside trying to convince patient to stay and patient refused. He was given a dose of Keflex prior to leaving the emergency room. - Lab Data Result diagrams: 05/31/21 18:36 05/31/21 18:36 Lab Results 05/31/21 05/31/21 Range/Units 18:36 18:36 WBC 14.3 H (3.8-10.6) k/uL RBC 4.71 (4.30-5.90) m/uL Hgb 15.3 (13.0-17.5) gm/dL Hct 43.7 (39.0-53.0) % MCV 92.7 (80.0-100.0) fL MCH 32.5 (25.0-35.0) pg MCHC 35.1 (31.0-37.0) g/dL RDW 14.3 (11.5-15.5) % Plt Count 360 (150-450) k/uL MPV 7.2 Neutrophils % 64 % Lymphocytes % 23 % Monocytes % 7 % Eosinophils % 5 % Basophils % 1 % Neutrophils # 9.1 H (1.3-7.7) k/uL Lymphocytes # 3.3 (1.0-4.8) k/uL Monocytes # 0.9 (0-1.0) k/uL Eosinophils # 0.7 (0-0.7) k/uL Basophils # 0.1 (0-0.2) k/uL Sodium 140 (137-145) mmol/L Potassium 4.3 (3.5-5.1) mmol/L Chloride 105 (98-107) mmol/L Carbon Dioxide 25 (22-30) mmol/L Anion Gap 10 mmol/L BUN 7 L (9-20) mg/dL Creatinine 0.74 (0.66-1.25) mg/dL Est GFR (CKD-EPI)AfAm >90 (>60 ml/min/1.73 sqM) Est GFR (CKD-EPI)NonAf >90 (>60 ml/min/1.73 sqM) Glucose 97 (74-99) mg/dL Calcium 9.3 (8.4-10.2) mg/dL Total Bilirubin 0.3 (0.2-1.3) mg/dL AST 28 (17-59) U/L ALT 17 (4-49) U/L Alkaline Phosphatase 103 (38-126) U/L Total Protein 7.3 (6.3-8.2) g/dL Albumin 4.6 (3.5-5.0) g/dL Disposition Clinical Impression: Cellulitis Disposition: ADMITTED IP TO THIS [facility] Condition: Good Decision Date: 05/31/21 Decision Time: 19:45
[2021-05-31] MEDS ORDERED: HYDROcodone/APAP 5-325MG 1 EACH TAB PO STA (18:27)
--- NOTE | 2021-05-31 18:34 | XR ---
EXAMINATION TYPE: XR finger LT DATE OF EXAM: 05/31/2021 COMPARISON: NONE HISTORY: Redness. Pain TECHNIQUE: 3 views FINDINGS: I see no fracture nor dislocation. Joint spaces are fairly normal. There is soft tissue swe lling around the index finger. IMPRESSION: Soft tissue swelling. No fracture.
[2021-05-31 19:04] LABS: ALT 17 U/L (4-49); AST 28 U/L (17-59); African American GFR (CKD) >90 (>60 ml/min/1.73 sqM); Albumin 4.6 g/dL (3.5-5.0); Alkaline Phosphatase 103 U/L (38-126); Anion Gap 10 mmol/L; Blood Urea Nitrogen 7 mg/dL (9-20); Calcium 9.3 mg/dL (8.4-10.2); Carbon Dioxide 25 mmol/L (22-30); Chloride 105 mmol/L (98-107); Glucose 97 mg/dL (74-99); Non-African American GFR(CKD) >90 (>60 ml/min/1.73 sqM); Potassium 4.3 mmol/L (3.5-5.1); Sodium 140 mmol/L (137-145); Total Bilirubin 0.3 mg/dL (0.2-1.3); Total Protein 7.3 g/dL (6.3-8.2)
[2021-05-31 19:08] LABS: Basophils # (A) 0.1 k/uL (0-0.2); Basophils % (A) 1 %; Eosinophils # (A) 0.7 k/uL (0-0.7); Eosinophils % (A) 5 %; HCT 43.7 % (39.0-53.0); HGB 15.3 gm/dL (13.0-17.5); Lymphocytes # (A) 3.3 k/uL (1.0-4.8); Lymphocytes % (A) 23 %; MCH 32.5 pg (25.0-35.0); MCHC 35.1 g/dL (31.0-37.0); MCV 92.7 fL (80.0-100.0); Mean Platelet Volume 7.2; Monocytes # (A) 0.9 k/uL (0-1.0); Monocytes % (A) 7 %; Neutrophils # (A) 9.1 k/uL (1.3-7.7); Neutrophils % (A) 64 %; Platelet Count 360 k/uL (150-450); RBC 4.71 m/uL (4.30-5.90); RDW 14.3 % (11.5-15.5); WBC 14.3 k/uL (3.8-10.6)
[2021-05-31] MEDS ORDERED: VANCOMYCIN IV PER PHARMACY 1 EACH MISC MISCELLANE PRN (19:20)
[2021-05-31] MEDS ORDERED: AMPICILLIN-SULBACTAM 1.5 GM in SODIUM CHLORIDE 0.9% 50 ML IVPB STA (19:20)
[2021-05-31] MEDS ORDERED: VANCOMYCIN 1,500 MG in SODIUM CHLORIDE 0.9% 250 ML IVPB STA (19:26)
[2021-05-31] MEDS ORDERED: IBUPROFEN 400 MG TAB PO PRN (19:42)
[2021-05-31] MEDS ORDERED: ACETAMINOPHEN TAB 325 MG TAB PO PRN (19:42)
[2021-05-31] MEDS ORDERED: NALOXONE 0.4 MG/ML 1 ML VIAL IV PRN (19:42)
[2021-05-31] MEDS ORDERED: CEPHALEXIN 500 MG CAP PO STA (20:14)
[2021-06-01] MEDS ORDERED: VANCOMYCIN 1,500 MG in SODIUM CHLORIDE 0.9% 250 ML IVPB SCH (05:00)
== END 2021-05-31 20:11 | disposition left against medical advice (07) ==
LOC: EC 17:40 → 6NMEDSUR 19:47
PROVIDERS: ADMIT Orthopaedic Surgery Orthopaedic Surgery of the Spine; ATTEND Orthopaedic Surgery Orthopaedic Surgery of the Spine
DX: L03.012 Cellulitis of left finger (principal); M79.89 Other specified soft tissue disorders; M79.645 Pain in left finger(s); F17.200 Nicotine dependence, unspecified, uncomplicated; J44.9 Chronic obstructive pulmonary disease, unspecified; K21.9 Gastro-esophageal reflux disease without esophagitis; M19.90 Unspecified osteoarthritis, unspecified site
CPT/HCPCS: 36415; 80053; 85025; 99285

== ENCOUNTER 2021-05-31 22:04 | Observation (INO) | payer OTHER ==
[2021-05-31] MEDS ORDERED: VANCOMYCIN IV PER PHARMACY 1 EACH MISC MISCELLANE PRN (22:08)
[2021-05-31] MEDS ORDERED: AMPICILLIN-SULBACTAM 1.5 GM in SODIUM CHLORIDE 0.9% 50 ML IVPB ONE (22:15)
[2021-05-31] MEDS ORDERED: MORPHINE SULFATE 2 MG/ML SYRINGE IVP ONE (22:29)
--- NOTE | 2021-05-31 22:33 | ED ---
General Adult HPI - General Chief complaint: Wound/Laceration Stated complaint: Revisit L Finger Infection Source: patient, RN notes reviewed Mode of arrival: ambulatory Limitations: no limitations - History of Present Illness Initial comments: 45-year-old well-appearing white male presents to the emergency room after leaving the emergency room AGAINST MEDICAL ADVICE a couple of hours ago. Patient had to leave for a family emergency and stated he would come back for admission and antibiotics. He states that since he left the pain has increased significantly and has become more painful to touch. -: days(s) (6) Location: upper extremity Radiation: non-radiation (Left index finger) Severity scale (1-10): 7 Quality: stabbing, sharp Consistency: constant Improves with: none Worsens with: other (palpation) Associated Symptoms: denies other symptoms - Related Data Home Medications Medication Instructions Recorded Confirmed Omeprazole Magnesium [PriLOSEC OTC] 20 mg PO DAILY 05/31/20 05/31/21 Multivitamins, Thera [Multivitamin 1 tab PO DAILY 10/04/20 05/31/21 (formulary)] Allergies Allergy/AdvReac Type Severity Reaction Status Date / Time No Known Allergies Allergy Verified 05/31/21 22:06 Review of Systems ROS Statement: Those systems with pertinent positive or pertinent negative responses have been documented in the HPI. ROS Other: All systems not noted in ROS Statement are negative. Past Medical History Past Medical History: COPD, GERD/Reflux, Osteoarthritis (OA) History of Any Multi-Drug Resistant Organisms: None Reported Past Surgical History: Orthopedic Surgery Additional Past Surgical History / Comment(s): BILATERAL carpal tunnel,. ACL left knee. Past Anesthesia/Blood Transfusion Reactions: No Reported Reaction Past Psychological History: ADD/ADHD, Depression Smoking Status: Current every day smoker Past Alcohol Use History: None Reported Past Drug Use History: Marijuana - Past Family History Mother Family Medical History: No Reported History General Exam Limitations: no limitations General appearance: alert, in no apparent distress Head exam: Present: atraumatic, normocephalic, normal inspection Eye exam: Present: normal appearance, PERRL, EOMI. Absent: scleral icterus, conjunctival injection, periorbital swelling Neck exam: Present: normal inspection, full ROM. Absent: tenderness, meningismus, lymphadenopathy Respiratory exam: Present: normal lung sounds bilaterally. Absent: respiratory distress, wheezes, rales, rhonchi, stridor Cardiovascular Exam: Present: normal rhythm, tachycardia, normal heart sounds. Absent: systolic murmur, diastolic murmur, rubs, gallop, clicks GI/Abdominal exam: Present: soft, normal bowel sounds. Absent: distended, tenderness, guarding, rebound, rigid Left Hand Wrist exam: Present: tenderness, swelling, abrasion, erythema (Left index finger) Neuro motor exam: Present: wrist extension intact, thumb opposition intact, thumb IP flexion intact, thumb adduction intact, fingers 2-5 abduction intact Vascular: Present: normal capillary refill, radial pulse. Absent: vascular compromise Neurological exam: Present: alert, oriented X3, CN II-XII intact Psychiatric exam: Present: normal affect, normal mood Skin exam: Present: warm, dry, intact, normal color. Absent: rash Course Vital Signs 05/31/21 22:06 Temperature 97.9 F Pulse Rate 118 H Respiratory 20 Rate Blood Pressure 135/56 O2 Sat by Pulse 97 Oximetry - Reevaluation(s) Reevaluation #1: 05/31/21 23:29 Incision and drainage revealed no purulent drainage Time: 23:29 Procedures - Incision & Drainage Consent Obtained: verbal consent Site: upper extremity Size (cm): 0 (0.5cm ) Anesthetic Used: lidocaine 1% Amount (mLs): 3 (digital block) I&D Cleaning Method: Chloroprep Sterile Field Used?: Yes Scalpel Used: #11 Needle Aspiration Performed?: No Irrigation Performed?: No I&D Drainage Obtained: Blood Culture Obtained?: No Patient Tolerated Procedure: well Medical Decision Making - Medical Decision Making Patient will be admitted with Dr. Lin on consult for cellulitis versus flexor tenosynovitis of the left index finger. I have been in contact with Dr. Lin through [employer] [facility]. Antibiotics were started, Unasyn and vancomycin. Blood c ultures were drawn at his earlier visit in the ER today prior to leaving against medical advice for a family emergency. I performed a digital block and did attempt to I&D finger with no evidence of purulent drainage. Capillary refill remains less than 2 seconds. Patient does have mobility of the finger but states that he is stiff. Case was discussed initially with Dr. Driscoll. Disposition Clinical Impression: Cellulitis Disposition: ADMITTED IP TO THIS HOSP Condition: Good Decision Date: 05/31/21 Decision Time: 22:35
[2021-05-31] MEDS ORDERED: ACETAMINOPHEN TAB 325 MG TAB PO PRN (22:36)
[2021-05-31] MEDS ORDERED: MORPHINE SULFATE 4 MG/ML SYRINGE IV PRN (22:36)
[2021-05-31] MEDS ORDERED: NALOXONE 0.4 MG/ML 1 ML VIAL IV PRN (22:36)
[2021-05-31] MEDS ORDERED: IBUPROFEN 400 MG TAB PO PRN (22:36)
[2021-05-31] MEDS ORDERED: VANCOMYCIN 1,250 MG in SODIUM CHLORIDE 0.9% 250 ML IVPB ONE (23:00)
[2021-05-31] MEDS ORDERED: LIDOCAINE 1% INJ 10MG/ML (20 ML MDV) SQ ONE (23:09)
[2021-06-01] MEDS ORDERED: MULTIVITAMINS, THERA 1 EACH TAB PO SCH (09:45)
[2021-06-01] MEDS ORDERED: PANTOPRAZOLE 40 MG TABLET PO SCH (09:45)
[2021-06-01 10:42] LABS: African American GFR (CKD) 130.2 (60.0-200.0); Non-African American GFR(CKD) 112.4 (60.0-200.0)
--- NOTE | 2021-06-01 12:22 | P.HPOR ---
History of Present Illness H&P Date: 06/01/21 Chief Complaint: Left finger swelling and pain The patient is a 45-year-old male who is [id number] who had an injury about 10 days ago to his left index finger. A small cut on his finger. Over the past week and half he says it's been feeling worse and getting red and swollen. He presented to the emergency room yesterday and we're initially consultation we asked patient to stay overnight for IV antibiotics and evaluation. He left AGAINST MEDICAL ADVICE was having worsening and presented back to the emergency room last night. He was admitted overnight he had incision and drainage at bedside per the emergency room which did not reveal any obvious pus. He was started on IV antibiotics and admitted for observation. Apparently there was no pus at the area just blood. He says the pain extends to his PIP joint of his finger. It does not extend into his palm. He denies any fevers or chills. He denies any night sweats. Today he says that the pain is improved. There is still swelling but his pain is somewhat better. It is bluing oven tender to touch antibiotics. He has not been taking any antibiotics prior to yesterday. Review of Systems As stated per HPI. He has not had any skin breakdown. He denies any fevers chills. Denies any night sweats. Denies any history of problems with his hand and fingers in the past. He says that today is feeling better than it was yesterday. Past Medical History Past Medical History: COPD, GERD/Reflux, Osteoarthritis (OA) History of Any Multi-Drug Resistant Organisms: None Reported Past Surgical History: Orthopedic Surgery Additional Past Surgical History / Comment(s): BILATERAL carpal tunnel,. ACL left knee. Past Anesthesia/Blood Transfusion Reactions: No Reported Reaction Past Psychological History: ADD/ADHD, Depression Additional Psychological History / Comment(s): PAST HISTORY Smoking Status: Current every day smoker Past Alcohol Use History: None Reported Additional Past Alcohol Use History / Comment(s): STARTED SMOKING AT AGE 13 SMOKES 1PPD. QUIT DRINKING ALCOHOL 2016 Past Drug Use History: Marijuana Additional Drug Use History / Comment(s): DAILY USE- - Past Family History Mother Family Medical History: No Reported History Medications and Allergies Home Medications Medication Instructions Recorded Confirmed Type Omeprazole Magnesium [PriLOSEC OTC] 20 mg PO DAILY 05/31/20 05/31/21 History Multivitamins, Thera [Multivitamin 1 tab PO DAILY 10/04/20 05/31/21 History (formulary)] Amoxicillin/Potassium Clav 1 tab PO Q12HR 1 Days #20 tab 06/01/21 Rx [Augmentin 875-125 Tablet] Allergies Allergy/AdvReac Type Severity Reaction Status Date / Time No Known Allergies Allergy Verified 05/31/21 22:06 Physical Examination Osteopathic Statement: *. No significant issues noted on an osteopathic structural exam other than those noted in the History and Physical/Consult. - Wrist & Hand left Location of pain: index finger (At his index finger there is swelling from his PIP joint distally. There is some erythema over the dorsal lateral aspect of his finger with a small abrasion. There is no pus. It is tender to palpation around the DIP joint. It is nontender volarly proximal to the PIP joint there is no streaking i), other (Is no streaking along the hand. There is no pain proximal to the PIP joint. There is no pain with motion at his MCP joint. He is has tight significant significant tightness with motion at his PIP joint and DIP joint) Index finger pain modifiers: with motion (The pain is not out of proportion with exam. He is not exquisitely tender but it is tense. There is no streaking along his flexor tendon.) Results Traces his hand does not show any obvious fracture or dislocation. There is some osteoarthritis. There is no foreign body noted. - Labs Labs: Abnormal Lab Results - Last 24 Hours (Table) 06/01/21 Range/Units 04:54 BUN 7.0 L (9.0-27.0) mg/dL Result Diagrams: 06/01/21 04:54 Assessment and Plan Assessment: Left index finger cellulitis. Left finger swelling. No obvious evidence of flexor tenosynovitis. Status post revision and debridement in the emergency room Some improvement with antibiotics Plan: Left index finger cellulitis. Left finger swelling. No obvious evidence of flexor tenosynovitis. Status post revision and debridement in the emergency room Some improvement with antibiotics The patient seems to have cellulitis around a small abrasion on his finger. He has not been on antibiotics prior to this and has developed some cellulitis around the area. I think that he can have significant improvement with antibiotics. The intermaxillary he has started seems to have helped some of his pain and it should continue to improve. He had a small irrigation and debridement in the emergency room which did not reveal any pus or purulence. I do not see any obvious abscess formation at area. I do not see evidence of flexor tenosynovitis at this point. I think it will be okay for him to continue treatment with antibiotics. We will give him another dose of IV antibiotic today and then have him discharge home with oral antibiotics with close follow-up in the next 1-3 days. If he is having worsening he is instructed come back however weakness plan follow him up in the next several days with him on antibiotics to see if he is able to make improvement. I discussed these issues with him at length and discussed the nature of his injury and his infection. He understands that I he can make progress but if he is having worsening there are the possibility of surgical options. I answered his questions best my ability and he is agreeable. It is okay for him to have regular diet today and for discharge home after his IV antibiotic with continued oral antibiotics at home and close follow-up. I discussed this with out chris as well.
[2021-06-01] MEDS ORDERED: VANCOMYCIN 1,500 MG in SODIUM CHLORIDE 0.9% 250 ML IVPB SCH (13:00)
[2021-06-01 14:57] VITALS: BP 111/75; PULSE 77; RESP 18; TEMP 98
--- NOTE | 2021-06-01 22:41 | P.CONS ---
History of Present Illness - Reason for Consult Consult date: 06/01/21 left index finger cellulitis Requesting physician: Rohini Valencia - Chief Complaint left index finger pain and redness x days - History of Present Illness History of present illness : Patient is 45-year male who did sustain injury to his left index finger about 10 days ago and this patient mentioning over the last week seem to have increasing swelling and redness to the left index finger area patient described the pain to be more of a throbbing intensity almost 7-8 out of 10 and no radiation did have this diffuse swelling redness but no significant drainage patient did present to the ER yesterday patient was advised inpatient stay antibiotic however the patient left AMA however subsequently he did have worsening and presented back to the ER last night p atient was evaluated by the ER physician did have attempted I&D at the bedside however there is no evidence of any purulent drainage patient on presentation to the hospital was afebrile and no fever has been recorded subsequently patient did have white count of 14.3 yesterday with left shift no CBC was done afterwards creatinine 0.7 no cultures has been done x-rays of the finger done yesterday did show soft tissue swelling no fracture patient was started on vancomycin was admitted to hospital infectious disease was consulted for further management of antibiotic therapy Review of system: CONSTITUTIONAL: Positive for weakness denies fever. EYES: No complaint. ENT: No complaint. RESPIRATORY: No complaint. CARDIOVASCULAR: No complaint. GENITOURINARY: No complaint. GASTROINTESTINAL: No complaint. MUSCULOSKELETAL: As per history of present illness. INTEGUMENTARY: No complaint. PSYCHOLOGIC: No complaint. ENDOCRINE: No complaint. NEUROLOGIC: No complaint. Past medical history : Reviewed, documented below Past surgical history : Reviewed, documented below Social history: Reviewed, documented below Medications: Reviewed, as documented below GENERAL DESCRIPTION: Middle-aged male lying in bed, no distress. No tachypnea or accessory muscle of respiration use. HEENT: Shows Pallor , no scleral icterus. Oral mucous membrane is dry. NECK: Trachea central, no thyromegaly. LUNGS: Unlabored breathing. Clear to auscultation anteriorly. No wheeze or crackle. HEART: S1, S2, regular rate and rhythm. ABDOMEN: Soft, no tenderness , guarding or rigidity EXTREMITIES: Left index finger did have a swelling and redness with a small puncture wound but no purulent drainage. SKIN: No rash, no masses palpable. NEUROLOGICAL: The patient is awake, alert, oriented x3, mood and affect normal. LABS AND RADIOLOGY: Reviewed results see below Assessment : Patient with a left index finger cellulitis started with a traumatic wound to begin with now with worsening cellulitis did have diffuse s welling but no purulent drainage at the time of attempted drainage by the ER physician you need to cover for the gram-positive skin octavia to the likely pathogen especially MRSA Plan: 1-await Ortho evaluation and possible I&D and drainage as well as cultures 2-vancomycin pharmacy to dose her with a target trough of 15 while watching her kidney function and Vanco trough closely along with Unasyn should provide adequate antibiotic coverage. 3-dry protective dressing We will follow on clinical condition and cultures to further adjust medication if needed Thank you for this consultation we will follow the patient along with you Past Medical History Past Medical History: COPD, GERD/Reflux, Osteoarthritis (OA) History of Any Multi-Drug Resistant Organisms: None Reported Past Surgical History: Orthopedic Surgery Additional Past Surgical History / Comment(s): BILATERAL carpal tunnel,. ACL left knee. Past Anesthesia/Blood Transfusion Reactions: No Reported Reaction Past Psychological History: ADD/ADHD, Depression Additional Psychological History / Comment(s): PAST HISTORY Smoking Status: Current every day smoker Past Alcohol Use History: None Reported Additional Past Alcohol Use History / Comment(s): STARTED SMOKING AT AGE 13 SMOKES 1PPD. QUIT DRINKING ALCOHOL 2016 Past Drug Use History: Marijuana Additional Drug Use History / Comment(s): DAILY USE- - Past Family History Mother Family Medical History: No Reported History Medications and Allergies Home Medications Medication Instructions Recorded Confirmed Type Omeprazole Magnesium [PriLOSEC OTC] 20 mg PO DAILY 05/31/20 05/31/21 History Multivitamins, Thera [Multivitamin 1 tab PO DAILY 10/04/20 05/31/21 History (formulary)] Albuterol Inhaler [Ventolin Hfa 2 puff INHALATION RT-QID PRN #8 gm 06/01/21 Rx Inhaler] Amoxicillin/Potassium Clav 1 tab PO Q12HR 1 Days #20 tab 06/01/21 Rx [Augmentin 875-125 Tablet] Beclomethasone Dipropionate [Qvar 1 puff INHALATION DAILY #1 each 06/01/21 Rx 40 mcg Redihaler] Allergies Allergy/AdvReac Type Severity Reaction Status Date / Time No Known Allergies Allergy Verified 05/31/21 22:06 Physical Exam Vitals: Vital Signs Temp Pulse Pulse Resp BP BP Pulse Ox 06/01/21 14:56 98.0 F 77 18 111/75 98 06/01/21 11:16 16 06/01/21 09:56 16 06/01/21 09:12 97.6 F 91 16 124/75 99 06/01/21 09:09 97.6 F 91 16 124/75 99 06/01/21 07:00 98.1 F 110/74 97 06/01/21 05:00 66 18 119/73 100 05/31/21 22:06 97.9 F 118 H 20 135/56 97 Intake and Output 06/01/21 06/01/21 06/01/21 06:59 14:59 22:59 Intake Total 240 Balance 240 Intake: Oral 240 Other: # Voids 3 Weight 79.379 kg Results CBC & Chem 7: 06/01/21 04:54 Labs: Abnormal Lab Results - Last 24 Hours (Table) 06/01/21 Range/Units 04:54 BUN 7.0 L (9.0-27.0) mg/dL
--- NOTE | 2021-06-02 16:14 | P.DS ---
Providers Date of admission: 05/31/21 22:43 Expected date of discharge: 06/01/21 Attending physician: Phani Dutton Consults: 05/31/21 22:53 Consult Physician Urgent Consulting Provider: Jero Lin Consult Reason/Comments: finger cellulitis Do you want consulting provider notified?: Already Contacted 06/01/21 09:44 Consult Physician Urgent Consulting Provider: Wilder Hernandez Consult Reason/Comments: finger cellulitis Do you want consulting provider notified?: Yes Primary care physician: Stated None Hospital Course: Discharge diagnoses. Left index finger cellulitis with the recent traumatic wound. No evidence of purulent drainage. No evidence of tenosynovitis as per orthopedic surgery. Continue with antibiotic course. COPD Ongoing nicotine addiction and marijuana use GERD osteoarthritis DVT protocol with heparin subcu Hospital course Patient is a 45-year-old male with a known history of COPD, marijuana use an daily basis, currently with a smoking, GERD, osteoarthritis presents to ER with complaints of left index finger injury on last . By Saturday notices having increased pain and since yesterday he does have significant throbbing pain with 7 out of 10 intensity reactive. Patient also having diffuse swelling and redness but no purulent drainage was noted. Patient presented to ER yesterday and was advised to stay in hospital for IV antibiotics. However patient left AMA and came back to the hospital last night. The ER physician attempted I&D at bedside however there is no evidence of any purulent drainage was noted. Patient has been afebrile. Denied any complaints of chest pain or shortness of breath. Laboratory data showed sodium 140 potassium 4.3 chloride 105 BUN 7 and creatinine 0.7 F redness are not elevated amylase 60 and lipase 105 RBC 14.3 hemoglobin 15.3 and platelets 360. Patient has been afebrile and not tachycardic. Patient was continued on antibiotics in the form of vancomycin while in the hospital. I&D was attempted in the ER without any purulent discharge. Orthopedic surgeon has seen the patient. No surgical intervention at this time. No evidence of tea no synovitis. Recommends to continue antibiotics and follow-up as an outpatient. Patient says that his pain is better today. And swelling is improving. Patient will be discharged with oral antibiotic course and follow-up as an outpatient with orthopedic surgery and primary care physician as outpatient. Patient has been afebrile. No complaints of chest pain or shortness of breath. Patient is being discharged home today. Discharge physical examination was done and vitals reviewed. Patient Condition at Discharge: Good Plan - Discharge Summary Discharge Rx Participant: No New Discharge Prescriptions: New Amoxicillin/Potassium Clav [Augmentin 875-125 Tablet] 1 tab PO Q12HR 1 Days #20 tab Beclomethasone Dipropionate [Qvar 40 mcg Redihaler] 1 puff INHALATION DAILY #1 each Albuterol Inhaler [Ventolin Hfa Inhaler] 2 puff INHALATION RT-QID PRN #8 gm PRN Reason: Shortness Of Breath Continue Omeprazole Magnesium [PriLOSEC OTC] 20 mg PO DAILY Multivitamins, Thera [Multivitamin (formulary)] 1 tab PO DAILY Discharge Medication List Omeprazole Magnesium [PriLOSEC OTC] 20 mg PO DAILY 05/31/20 [History] Multivitamins, Thera [Multivitamin (formulary)] 1 tab PO DAILY 10/04/20 [History] Albuterol Inhaler [Ventolin Hfa Inhaler] 2 puff INHALATION RT-QID PRN #8 gm 06/01/21 [Rx] Amoxicillin/Potassium Clav [Augmentin 875-125 Tablet] 1 tab PO Q12HR 1 Days #20 tab 06/01/21 [Rx] Beclomethasone Dipropionate [Qvar 40 mcg Redihaler] 1 puff INHALATION DAILY #1 each 06/01/21 [Rx] Follow up Appointment(s)/Referral(s): None,Stated [Primary Care Provider] - 1-2 days Bandar Restrepo DO [Doctor of Osteopathic Medicine] - 06/07/21 (Follow-up with Dr. Bandar Restrepo on per Dr. Lin) Patient Instructions/Handouts: Cellulitis (DC) Activity/Diet/Wound Care/Special Instructions: Finger clean. May shower. Oral Augmentin 875 mg by mouth twice a day Discharge Disposition: HOME SELF-CARE
--- NOTE | 2021-06-02 16:14 | P.HPIM ---
History of Present Illness H&P Date: 06/01/21 Chief Complaint: Left index finger infection Patient is a 45-year-old male with a known history of COPD, marijuana use an daily basis, currently with a smoking, GERD, osteoarthritis presents to ER with complaints of left index finger injury on last . By Saturday notices having increased pain and since yesterday he does have significant throbbing pain with 7 out of 10 intensity reactive. Patient also having diffuse swelling and redness but no purulent drainage was noted. Patient presented to ER yesterday and was advised to stay in hospital for IV antibiotics. However patient left AMA and came back to the hospital last night. The ER physician attempted I&D at bedside however there is no evidence of any purulent drainage was noted. Patient has been afebrile. Denied any complaints of chest pain or shortness of breath. Laboratory data showed sodium 140 potassium 4.3 chloride 105 BUN 7 and creatinine 0.7 F redness are not elevated amylase 60 and lipase 105 RBC 14.3 hemoglobin 15.3 and platelets 360. Patient has been afebrile and not tachycardic. Review of Systems Constitutional: Patient denies any fever or chills . No generalized weakness or weight loss. Abdomen: Patient denied nausea vomiting and diarrhea and abdominal pain. Cardiovascular: Patient denies any chest pain or short of breath no palp itations. Respiratory: patient denied any cough is from production. No shortness of breath Neurologic: Patient denied any numbness or tingling headache. Musculoskeletal: Patient denies any complaints of joint swelling or deformity. Left index finger swelling and pain. Skin: Negative Psychiatric: Negative Endocrine: No heat or cold intolerance. No recent weight gain. Genitourinary: No dysuria or hematuria. All other 14 point ROS negative except the above Past Medical History Past Medical History: COPD, GERD/Reflux, Osteoarthritis (OA) History of Any Multi-Drug Resistant Organisms: None Reported Past Surgical History: Orthopedic Surgery Additional Past Surgical History / Comment(s): BILATERAL carpal tunnel,. ACL left knee. Past Anesthesia/Blood Transfusion Reactions: No Reported Reaction Past Psychological History: ADD/ADHD, Depression Additional Psychological History / Comment(s): PAST HISTORY Smoking Status: Current every day smoker Past Alcohol Use History: None Reported Additional Past Alcohol Use History / Comment(s): STARTED SMOKING AT AGE 13 SMOKES 1PPD. QUIT DRINKING ALCOHOL 2016 Past Drug Use History: Marijuana Additional Drug Use History / Comment(s): DAILY USE- - Past Family History Mother Family Medical History: No Reported History Medications and Allergies Home Medications Medication Instructions Recorded Confirmed Type Omeprazole Magnesium [PriLOSEC OTC] 20 mg PO DAILY 05/31/20 05/31/21 History Multivitamins, Thera [Multivitamin 1 tab PO DAILY 10/04/20 05/31/21 History (formulary)] Albuterol Inhaler [Ventolin Hfa 2 puff INHALATION RT-QID PRN #8 gm 06/01/21 Rx Inhaler] Amoxicillin/Potassium Clav 1 tab PO Q12HR 1 Days #20 tab 06/01/21 Rx [Augmentin 875-125 Tablet] Beclomethasone Dipropionate [Qvar 1 puff INHALATION DAILY #1 each 06/01/21 Rx 40 mcg Redihaler] Allergies Allergy/AdvReac Type Severity Reaction Status Date / Time No Known Allergies Allergy Verified 05/31/21 22:06 Physical Exam Vitals: Vital Signs Temp Pulse Resp BP BP Pulse Ox 06/01/21 11:16 16 06/01/21 09:56 16 06/01/21 09:12 97.6 F 91 16 124/75 99 06/01/21 09:09 97.6 F 91 16 124/75 99 06/01/21 07:00 98.1 F 110/74 97 06/01/21 05:00 66 18 119/73 100 05/31/21 22:06 97.9 F 118 H 20 135/56 97 Intake and Output 05/31/21 06/01/21 06/01/21 22:59 06:59 14:59 Other: # Voids 2 Weight 79.379 kg 79.379 kg PHYSICAL EXAMINATION: Patient is lying in the bed comfortably, no acute distress, awake alert and oriented.. HEENT: Normocephalic. Neck is supple. Pupils reactive. Nostrils clear. Oral cavity is moist. Neck reveals no JVD, carotid bruits, or thyromegaly. CHEST EXAMINATION: Trachea is central. Symmetrical expansion. Lung rojas clear to auscultation and percussion. CARDIAC: Normal S1, S2 with no gallops. No murmurs ABDOMEN: Soft. Bowel sounds normal. No organomegaly. No abdominal bruits. Extremities: reveal no edema. No clubbing or cyanosis Neurologically awake, alert, oriented x3 with well-coordinated movements. No focal deficits noted Skin: No rash or skin lesions. Psychiatric: Coperative. Nonsuicidal Musculoskeletal: No joint swelling or deformity. Normal range of motion. Left index finger swelling and redness without any purulent discharge at the injury site. Results CBC & Chem 7: 06/01/21 04:54 Labs: Abnormal Lab Results - Last 24 Hours (Table) 06/01/21 Range/Units 04:54 BUN 7.0 L (9.0-27.0) mg/dL Thrombosis Risk Factor Assmnt - DVT/VTE Prophylaxis DVT/VTE Prophylaxis: Pharmacologic Prophylaxis ordered Assessment and Plan Assessment: Left index finger cellulitis with the recent traumatic wound. No evidence of purulent drainage. No evidence of tea no synovitis as per orthopedic surgery. COPD Ongoing nicotine addiction and marijuana use GERD osteoarthritis DVT protocol with heparin subcu Plan: Patient be continued on pain management with [place]. Continue with antibiotics in the form of vancomycin. Follow renal function. Patient was seen by ID and of the orthopedic surgery. Orthopedic surgery recommends to follow as an outpatient and continue with antibiotics at this time. No surgical intervention recommended at this time. Next and continue to follow closely. Patient be started on DuoNeb's and monitor breathing status. Continue the home medications and GI and DVT prophylaxis. Follow up closely.
== END 2021-06-01 15:33 | disposition home or self-care (01) ==
LOC: EC 22:04 → 6NMEDSUR 22:43
PROVIDERS: ADMIT Hospitalist; ATTEND Hospitalist
DX: L03.012 Cellulitis of left finger (principal); S61.211A Laceration without foreign body of left index finger without damage to nail, initial encounter; J44.9 Chronic obstructive pulmonary disease, unspecified; F17.210 Nicotine dependence, cigarettes, uncomplicated; F12.90 Cannabis use, unspecified, uncomplicated; Y99.9 Unspecified external cause status; K21.9 Gastro-esophageal reflux disease without esophagitis; M19.90 Unspecified osteoarthritis, unspecified site; F90.9 Attention-deficit hyperactivity disorder, unspecified type; F32.9 Major depressive disorder, single episode, unspecified; G56.03 Carpal tunnel syndrome, bilateral upper limbs
CPT/HCPCS: 99284; 96365; 96366; 96367; 96375; 82565; 84520; G0378 ×2; J3370 ×2; J2001; J2270; J0295; 36415; 80053; 85025; 99285

== ENCOUNTER 2024-02-22 13:52 | Emergency (ER) | payer OTHER ==
--- NOTE | 2024-02-22 15:17 | ED ---
General Adult HPI - General Source: patient, RN notes reviewed Mode of arrival: ambulatory Limitations: no limitations <Yessenia Jha - Last Filed: 02/22/24 23:39> <Rohini Echevarria - Last Filed: 02/23/24 03:38> - General Chief complaint: Psychiatric Symptoms Stated complaint: Mental health eval Time Seen by Provider: 02/22/24 14:47 - History of Present Illness Initial comments: 48-year-old male presents to the emergency department for mental health evaluation. Patient states that over the past week he has been under a lot of stress and has had a difficult time at home. He notes that he has had increasing thoughts of suicide over the past week. He denies intent or plan. He states that he "cannot leave his kids." He does note that he occasionally has possible auditory hallucinations of phones ringing. Patient does admit to significant alcohol abuse. He states that he usually drinks about half a gallon a day daily since July. Patient reports that over the past week he does note that he has been trying to cut back. He states that today he had a few drinks but is unable to quantify. He notes that his last drink was around 11 AM-12PM. (Yessenia Jha) - Related Data Home Medications Medication Instructions Recorded Confirmed Omeprazole Magnesium [PriLOSEC OTC] 20 mg PO DAILY 05/31/20 02/22/24 Unknown Allergy Medication 1 dose PO DAILY PRN 02/22/24 02/22/24 Previous Rx's Medication Instructions Recorded chlordiazePOXIDE HCl [Librium] 50 mg PO QID #34 capsule 02/23/24 Allergies Allergy/AdvReac Type Severity Reaction Status Date / Time No Known Allergies Allergy Verified 02/22/24 16:54 Review of Systems ROS Other: All systems not noted in ROS Statement are negative. <Yessenia Jha - Last Filed: 02/22/24 23:39> ROS Other: All systems not noted in ROS Statement are negative. <Rohini Echevarria - Last Filed: 02/23/24 03:38> ROS Statement: Those systems with pertinent positive or pertinent negative responses have been documented in the HPI. Past Medical History Past Medical History: COPD, GERD/Reflux, Osteoarthritis (OA) History of Any Multi-Drug Resistant Organisms: None Reported Past Surgical History: Orthopedic Surgery Additional Past Surgical History / Comment(s): BILATERAL carpal tunnel,. ACL left knee. Past Anesthesia/Blood Transfusion Reactions: No Reported Reaction Past Psychological History: ADD/ADHD, Depression Smoking Status: Current every day smoker Past Alcohol Use History: Daily Past Drug Use History: Marijuana - Past Family History Mother Family Medical History: No Reported History <Yessenia Jha - Last Filed: 02/22/24 23:39> General Exam Limitations: no limitations General appearance: alert, in no apparent distress Head exam: Present: atraumatic, normocephalic, normal inspection Eye exam: Present: normal appearance, PERRL, EOMI. Absent: scleral icterus, co njunctival injection, periorbital swelling ENT exam: Present: normal exam, mucous membranes moist Neck exam: Present: normal inspection. Absent: tenderness, meningismus, lymphadenopathy Respiratory exam: Present: normal lung sounds bilaterally Cardiovascular Exam: Present: regular rate, normal rhythm, normal heart sounds. Absent: systolic murmur, diastolic murmur, rubs, gallop, clicks Extremities exam: Present: normal inspection, full ROM, normal capillary refill. Absent: tenderness, pedal edema, joint swelling, calf tenderness Neurological exam: Present: alert, oriented X3 Psychiatric exam: Present: normal affect, normal mood Skin exam: Present: warm, dry, intact, normal color. Absent: rash <Yessenia Jha - Last Filed: 02/22/24 23:39> Course Vital Signs 02/22/24 02/22/24 14:03 19:46 Temperature 98.3 F 97.6 F Pulse Rate 111 H 80 Respiratory 18 16 Rate Blood Pressure 177/98 159/87 O2 Sat by Pulse 94 L 97 Oximetry Medical Decision Making - Lab Data Result diagrams: 02/22/24 15:40 02/22/24 15:40 <Yessenia Jha - Last Filed: 02/22/24 23:39> - Lab Data Result diagrams: 02/22/24 15:40 02/22/24 15:40 <Rohini Echevarria - Last Filed: 02/23/24 03:38> - Medical Decision Making Was pt. sent in by a medical professional or institution (, PA, CERTIFIED INDOOR ENVIRONMENTALIST, urgent care, hospital, or intermediate...) When possible be specific @ -[No] Did you speak to anyone other than the patient for history (EMS, parent, family, police, friend...)? What history was obtained from this source @ -[No] Did you review nursing and triage notes (agree or disagree)? Why? @ -[I reviewed and agree with nursing and triage notes] Were old charts reviewed (outside hosp., previous admission, EMS record, old EKG, old radiological studies, urgent care reports/EKG's, intermediate records)? Report findings @ -[No old charts were reviewed] Differential Diagnosis (chest pain, altered mental status, abdominal pain women, abdominal pain men, vaginal bleeding, weakness, fever, dyspnea, syncope, headache, dizziness, GI bleed, back pain, seizure, CVA, palpatations, mental health, musculoskeletal)? @ -[Differential Mental Health Depression, anxiety, bipolar, psychosis, schizophrenia, borderline personality, situational depression, adjustment disorder, behavioral disorder, brain tumor, malingering, substance abuse, encephalopathy, medication reaction, dementia, hypothyroidism, degenerative neurologic disorder, lupus.... This is not meant to be all-inclusive list] EKG interpreted by me (3pts min.). @ -None X-rays interpreted by me (1pt min.). @ -[None done] CT interpreted by me (1pt min.). @ -[None done] U/S interpreted by me (1pt. min.). @ -[None done] What testing was considered but not performed or refused? (CT, X-rays, U/S, labs)? Why? @ -[None] What meds were considered but not given or refused? Why? @ -[None] Did you discuss the management of the patient with other professionals (professionals i.e. , PA, CERTIFIED INDOOR ENVIRONMENTALIST, lab, RT, psych nurse, social service technician, strip polisher, teacher, executive vice president and chief operating officer, case making machine operator)? Give summary @ -[No] Was smoking cessation discussed for >3mins.? @ -[No] Was critical care preformed (if so, how long)? @ -[No] Were there social determinants of health that impacted care today? How? (Homelessness, low income, unemployed, alcoholism, drug addiction, transportation, low edu. Level, literacy, decrease access to med. care, shelter, rehab)? @ -[No] Was there de-escalation of care discussed even if they declined (Discuss DNR or withdrawal of care, Hospice)? DNR status @ -[No] What co-morbidities impacted this encounter? (DM, HTN, Smoking, COPD, CAD, Cancer, CVA, ARF, Chemo, Hep., AIDS, mental health diagnosis, sleep apnea, morbid obesity)? @ -[None] Was patient admitted / discharged? Hospital course, mention meds given and route, prescriptions, significant lab abnormalities, going to OR and other pertinent info. @ -[Patient presented to the emergency department for mental health evaluation. Admits to suicidal ideation without intent or plan. Patient admits to alcohol use. Laboratory studies obtained. Significant for alcohol level of 248. Patient pending EPS evaluation after sober at 0040. ] Undiagnosed new problem with uncertain prognosis? @ -[No] Drug Therapy requiring intensive monitoring for toxicity (Heparin, Nitro, Insulin, Cardizem)? @ -[No] Were any procedures done? @ -[No] Diagnosis/symptom? @ -[suicidal ideation] Acute, or Chronic, or Acute on Chronic? @ -[acute] Uncomplicated (without systemic symptoms) or Complicated (systemic symptoms)? @ -[default] Side effects of treatment? @ -[No] Exacerbation, Progression, or Severe Exacerbation? @ -[No] Poses a threat to life or bodily function? How? (Chest pain, USA, ME, pneumonia, PE, COPD, DKA, ARF, appy, cholecystitis, CVA, Diverticulitis, Homicidal, Suicidal, threat to staff... and all critical care pts) @ -[No] (Yessenia Jha) Was patient admitted / discharged? Hospital course, mention meds given and route, prescriptions, significant lab abnormalities, going to OR and other pertinent info. @ -Discharged Patient care was signed out to me pending evaluation by psychiatric services, patient was evaluated they recommend discharge home and management of his alcohol abuse. No indication for psychiatric hospitalization at this time. Patient was able to safety plan. Patient does want to quit drinking. He will be discharged home with a tapering dose of Librium. Undiagnosed new problem with uncertain prognosis? @ -No Drug Therapy requiring intensive monitoring for toxicity (Heparin, Nitro, Insulin, Cardizem)? @ -No Were any procedures done? @ -No Diagnosis/symptom? @ -Alcoholism Acute, or Chronic, or Acute on Chronic? @ -Chronic Uncomplicated (without systemic symptoms) or Complicated (systemic symptoms)? @ -Default Side effects of treatment? @ -No Exacerbation, Progression, or Severe Exacerbation? @ -No Poses a threat to life or bodily function? How? (Chest pain, USA, ME, pneumonia, PE, COPD, DKA, ARF, appy, cholecystitis, CVA, Diverticulitis, Homicidal, Suicidal, threat to staff... and all critical care pts) @ -No (Rohini Echevarria) - Lab Data Lab Results 02/22/24 02/22/24 02/22/24 Range/Units 15:40 15:40 15:40 WBC 9.5 (3.8-10.6) k/uL RBC 4.78 (4.30-5.90) m/uL Hgb 15.6 (13.0-17.5) gm/dL Hct 47.6 (39.0-53.0) % MCV 99.7 (80.0-100.0) fL MCH 32.7 (25.0-35.0) pg MCHC 32.8 (31.0-37.0) g/dL RDW 14.5 (11.5-15.5) % Plt Count 228 (150-450) k/uL MPV 7.7 Neutrophils % 68 % Lymphocytes % 19 % Monocytes % 5 % Eosinophils % 5 % Basophils % 1 % Neutrophils # 6.4 (1.3-7.7) k/uL Lymphocytes # 1.8 (1.0-4.8) k/uL Monocytes # 0.5 (0-1.0) k/uL Eosinophils # 0.5 (0-0.7) k/uL Basophils # 0.1 (0-0.2) k/uL Macrocytosis Slight PT 9.8 L (10.0-12.5) sec INR 0.9 (<1.2) Sodium 144 (137-145) mmol/L Potassium 4.0 (3.5-5.1) mmol/L Chloride 109 H (98-107) mmol/L Carbon Dioxide 25 (22-30) mmol/L Anion Gap 10 mmol/L BUN 10 (9-20) mg/dL Creatinine 0.73 (0.66-1.25) mg/dL Est GFR (CKD-EPI)AfAm >90 (>60 ml/min/1.73 sqM) Est GFR (CKD-EPI)NonAf >90 (>60 ml/min/1.73 sqM) Glucose 125 H (74-99) mg/dL Calcium 8.6 (8.4-10.2) mg/dL Magnesium 1.8 (1.6-2.3) mg/dL Total Bilirubin 0.5 (0.2-1.3) mg/dL AST 64 H (17-59) U/L ALT 40 (4-49) U/L Alkaline Phosphatase 110 (38-126) U/L Total Protein 7.5 (6.3-8.2) g/dL Albumin 4.5 (3.5-5.0) g/dL Urine Opiates Screen (NotDetected) Ur Oxycodone Screen (NotDetected) Urine Methadone Screen (NotDetected) Ur Barbiturates Screen (NotDetected) U Tricyclic Antidepress (NotDetected) Ur Phencyclidine Scrn (NotDetected) Ur Amphetamines Screen (NotDetected) U Methamphetamines Scrn (NotDetected) U Benzodiazepines Scrn (NotDetected) Urine Cocaine Screen (NotDetected) U Marijuana (THC) Screen (NotDetected) Serum Alcohol 248 H* mg/dL 02/22/24 Range/Units 20:15 WBC (3.8-10.6) k/uL RBC (4.30-5.90) m/uL Hgb (13.0-17.5) gm/dL Hct (39.0-53.0) % MCV (80.0-100.0) fL MCH (25.0-35.0) pg MCHC (31.0-37.0) g/dL RDW (11.5-15.5) % Plt Count (150-450) k/uL MPV Neutrophils % % Lymphocytes % % Monocytes % % Eosinophils % % Basophils % % Neutrophils # (1.3-7.7) k/uL Lymphocytes # (1.0-4.8) k/uL Monocytes # (0-1.0) k/uL Eosinophils # (0-0.7) k/uL Basophils # (0-0.2) k/uL Macrocytosis PT (10.0-12.5) sec INR (<1.2) Sodium (137-145) mmol/L Potassium (3.5-5.1) mmol/L Chloride (98-107) mmol/L Carbon Dioxide (22-30) mmol/L Anion Gap mmol/L BUN (9-20) mg/dL Creatinine (0.66-1.25) mg/dL Est GFR (CKD-EPI)AfAm (>60 ml/min/1.73 sqM) Est GFR (CKD-EPI)NonAf (>60 ml/min/1.73 sqM) Glucose (74-99) mg/dL Calcium (8.4-10.2) mg/dL Magnesium (1.6-2.3) mg/dL Total Bilirubin (0.2-1.3) mg/dL AST (17-59) U/L ALT (4-49) U/L Alkaline Phosphatase (38-126) U/L Total Protein (6.3-8.2) g/dL Albumin (3.5-5.0) g/dL Urine Opiates Screen Not Detected (NotDetected) Ur Oxycodone Screen Not Detected (NotDetected) Urine Methadone Screen Not Detected (NotDetected) Ur Barbiturates Screen Not Detected (NotDetected) U Tricyclic Antidepress Not Detected (NotDetected) Ur Phencyclidine Scrn Not Detected (NotDetected) Ur Amphetamines Screen Detected H (NotDetected) U Methamphetamines Scrn Not Detected (NotDetected) U Benzodiazepines Scrn Not Detected (NotDetected) Urine Cocaine Screen Not Detected (NotDetected) U Marijuana (THC) Screen Detected H (NotDetected) Serum Alcohol mg/dL Disposition <Yessenia Jha - Last Filed: 02/22/24 23:39> Is patient prescribed a controlled substance at d/c from ED?: No <Rohini Echevarria - Last Filed: 02/23/24 03:38> Clinical Impression: Depression, Alcohol abuse Disposition: HOME SELF-CARE Condition: Stable Prescriptions: chlordiazePOXIDE HCl [Librium] 50 mg PO QID #34 capsule Referrals: None,Stated [Primary Care Provider] - 1-2 days
[2024-02-22] MEDS ORDERED: LORazepam 2 MG/ML INJ IV PRN ×3 (15:31)
[2024-02-22] MEDS ORDERED: LORazepam 0.5 MG TAB PO PRN (15:31)
[2024-02-22] MEDS ORDERED: LORazepam 1 MG TAB PO PRN ×2 (15:31)
[2024-02-22 15:54] LABS: Basophils # (A) 0.1 k/uL (0-0.2); Basophils % (A) 1 %; Eosinophils # (A) 0.5 k/uL (0-0.7); Eosinophils % (A) 5 %; HCT 47.6 % (39.0-53.0); HGB 15.6 gm/dL (13.0-17.5); Lymphocytes # (A) 1.8 k/uL (1.0-4.8); Lymphocytes % (A) 19 %; MCH 32.7 pg (25.0-35.0); MCHC 32.8 g/dL (31.0-37.0); MCV 99.7 fL (80.0-100.0); Macrocytosis Slight; Mean Platelet Volume 7.7; Monocytes # (A) 0.5 k/uL (0-1.0); Monocytes % (A) 5 %; Neutrophils # (A) 6.4 k/uL (1.3-7.7); Neutrophils % (A) 68 %; Platelet Count 228 k/uL (150-450); RBC 4.78 m/uL (4.30-5.90); RDW 14.5 % (11.5-15.5); WBC 9.5 k/uL (3.8-10.6)
[2024-02-22] MEDS: THIAMINE 100 MG/ML 2 ML VIAL IM STA (15:56)
[2024-02-22 16:00] LABS: INR 0.9 (<1.2); Prothrombin Time 9.8 sec (10.0-12.5)
[2024-02-22 16:06] LABS: ALT 40 U/L (4-49); AST 64 U/L (17-59); African American GFR (CKD) >90 (>60 ml/min/1.73 sqM); Albumin 4.5 g/dL (3.5-5.0); Alkaline Phosphatase 110 U/L (38-126); Anion Gap 10 mmol/L; Blood Urea Nitrogen 10 mg/dL (9-20); Calcium 8.6 mg/dL (8.4-10.2); Carbon Dioxide 25 mmol/L (22-30); Chloride 109 mmol/L (98-107); Glucose 125 mg/dL (74-99); Magnesium 1.8 mg/dL (1.6-2.3); Non-African American GFR(CKD) >90 (>60 ml/min/1.73 sqM); Sodium 144 mmol/L (137-145); Total Bilirubin 0.5 mg/dL (0.2-1.3); Total Protein 7.5 g/dL (6.3-8.2)
[2024-02-22 16:20] LABS: Alcohol 248 mg/dL
[2024-02-22 19:49] VITALS: RESP 16; TEMP 97.6
[2024-02-22] MEDS: LORazepam 1 MG TAB PO PRN (20:12)
[2024-02-22 20:39] LABS: Amphetamine Screen,Urine Detected (NotDetected); Barbiturate Screen,Urine Not Detected (NotDetected); Benzodiazepines Screen,Urine Not Detected (NotDetected); Cocaine Screen,Urine Not Detected (NotDetected); Methadone Screen, Urine Not Detected (NotDetected); Opiate Screen,Urine Not Detected (NotDetected); Oxycodone Screen, Urine Not Detected (NotDetected); Phencyclidine Screen,Urine Not Detected (NotDetected); Tricyclic Antidepressant,Urine Not Detected (NotDetected); Urn Cannabinoid Scrn Detected (NotDetected)
[2024-02-23 04:53] VITALS: BP 141/91; PULSE 88
[2024-02-23] MEDS ORDERED: THIAMINE 100 MG TAB PO SCH (09:00)
== END 2024-02-23 04:21 | disposition home or self-care (01) ==
LOC: EC 13:52
DX: F32.A Depression, unspecified (principal); R45.851 Suicidal ideations; F10.20 Alcohol dependence, uncomplicated; Y90.8 Blood alcohol level of 240 mg/100 ml or more; F17.200 Nicotine dependence, unspecified, uncomplicated; F12.90 Cannabis use, unspecified, uncomplicated
CPT/HCPCS: 99285; 96372; 82075; 36415; 80053; 83735; 85025; 85610; 80306; G0480; J3411; 80320